=== PATIENT | male | born 1935 | race Caucasian/White ===

== ENCOUNTER 2021-07-12 13:23 | Inpatient (IN) | payer MEDICARE, OTHER, SELFPAY ==
[2021-07-12 13:24] VITALS: BP 168/87; PULSE 82; RESP 16; O2SAT 97; BMI 25.2
--- NOTE | 2021-07-12 13:29 | XR_ITS ---
WS: [id number] XR hip RT 2-3V wo/w pel* [id number] REASON FOR EXAM: pain after fall FINDINGS: There is an intertrochanteric fracture of the proximal right femur. The fracture line extends into th e lesser trochanter. There are least 3 major fracture fragments. There is moderate displacement of fracture fragments. The main body of the lesser trochanter does not appear to be displaced however there does appear to be a fracture fragment displaced from the more superior aspect of the lesser trochanter. There is some deformity of the junction at the superior and inferior pubic ramus which appears to be an old injury however there are no prior examinations for comparison. XR/XR hip RT 2-3V wo/w pel* [id number] IMPRESSION: Complex intertrochanteric fracture of the right hip. Abnormality of the junction of the superior and inferior pubic ramus as above.
--- NOTE | 2021-07-12 13:59 | XR_ITS ---
WS: [id number] XR chest 1V portable [id number] REASON FOR EXAM: HIP PAIN AFTER FALL FINDINGS: Moderate tortuosity of the thoracic aorta without aneurysmal dilatation. Normal heart size. Calcified granulomatous disease in both hemithoraces. Linear opacities in both lower lungs, most likely scarring or small areas of atelectasis. No previous examination for comparison. No acute pulmonary parenchymal or pleural abnormality. Mild/moderate changes of degenerative spondylosis in the mid and lower thoracic spine. Left shoulder arthroplasty. XR/XR chest 1V portable [id number] IMPRESSION: No acute chest abnormality.
--- NOTE | 2021-07-12 14:02 | ECG_ITS ---
[facility] Test Date: 2021-07-12 Pat Name: Darian Candelaria Department: Room: Gender: Male [facility] Attendant: : 1935 Requested By: Angus Colin Order Number: [id number] Seng MD: Yvrose Singh M.D. Measurements Intervals [place] Rate: 80 P: 70 [place]: 231 QRS: -40 QRSD: 103 T: 60 QT: 362 QTc: 419 Interpretive Statements SINUS RHYTHM WITH FIRST DEGREE AV BLOCK WITH OCCASIONAL SUPRAVENTRICULAR PREMATURE COMPLEXES LEFT AXIS DEVIATION [QRS AXIS < -30] INCOMPLETE RIGHT BUNDLE BRANCH BLOCK [90+ ms QRS DURATION, TERMINAL R IN V1/V2, 40+ ms S IN I/aVL/V4/V5/V6] No previous ECG available for comparison Electronically Signed On 07-12-2021 16:52:30 EXTENSION PROFESSOR by Yvrose Singh M.D. [id number]
--- NOTE | 2021-07-12 14:14 | W.ED.FALL ---
HPI - Fall General: Chief Complaint: Fall Stated Complaint: R HIP PAIN, GROUND LEVEL FALL Time Seen by Provider: 07/12/21 13:24 History of Present Illness: 86-year-old male who presents to the emergency room after a ground-level fall at home. He was in the bathroom stumbled and fell landing on his right side was unable to get up. He has severe right-sided hip pain with external rotation obvious shortening of the right leg. He did strike his head as he fell he also hit his right elbow when he fell there is a small abrasion there is a previous injury to the right humerus. He is able to move flex and extend at the elbow without any difficulty. He denies any neck pain denies any chest pain. Questionable loss consciousness when he hit his head. MD complaint: fall Onset (ago): minute(s) Fall from: standing Fall witnessed: no Place fall occurred: home Loss of consciousness: None Length of LOC: second(s) Prolonged down time: no Symptoms prior to fall: none Context: tripped/slipped Location of injury: other (Right hip) Severity: severe Quality: sharp Associated symptoms-after fall: Reports difficulty walking; Denies abdominal pain, chest pain, confusion, headache(s), hematuria, lightheadedness, neck pain, numbness, short of breath, vertigo or weakness Review of Systems Card: Denies: chest pain or lightheadedness GI: Denies: abdominal pain : Denies: hematuria Musc: Denies: neck pain Neuro: Reports: difficulty walking; Denies: headache(s), vertigo or confusion [facility] ED PFSH: Medical History (Updated 07/12/21 @ 14:54 by Angus Bailey DO) BPH (benign prostatic hyperplasia) COVID-19 09/2020 Diabetes GERD (gastroesophageal reflux disease) Gout Hyperlipidemia Hypothyroid Surgical History (Updated 07/12/21 @ 14:30 by Angus Bailey DO) History of arthroplasty of left knee History of total right knee replacement S/p reverse total shoulder arthroplasty Social History (Updated 07/12/21 @ 14:17 by Angus Bailey DO) Smoking and tobacco status: never smoked Alcohol intake: unknown Physical Exam Const: COMMON NORMALS: no acute distress GENERAL APPEARANCE: cooperative and comfortable ORIENTATION/CONSCIOUSNESS: Yes awake, Yes oriented to person, Yes oriented to place and Yes oriented to time HENMT: COMMON NORMALS: normocephalic, atraumatic and hearing grossly normal bilaterally HEAD & SCALP: normocephalic and atraumatic Neck/C-Spine: COMMON NORMALS: no JVD Resp: COMMON NORMALS: normal respiratory effort, No retractions, No use of accessory muscles and clear to auscultation bilaterally AUSCULTATION: clear to auscultation bilaterally Cardio: COMMON NORMALS: no JVD, regular rate, regular rhythm and No murmurs present (Cardio) RATE: regular rate RHYTHM: regular rhythm GI: COMMON NORMALS: Soft to palpation and No hepatosplenomegaly present AUSCULTATION: Yes normoactive bowel sounds PALPATION: Yes Soft to palpation, No Tenderness to palpation present (GI), No Guarding due to palpation present (GI) and Yes No hepatosplenomegaly present Extremity: OTHER: Right leg externally rotated and shortened neurovascularly intact Neuro: SENSORIUM/ORIENTATION: Yes oriented to person, Yes oriented to place and Yes oriented to time Skin: COMMON NORMALS: no rashes or lesions noted GENERAL SKIN EXAM: no rashes or lesions noted Course Vital Signs: Vital signs: Vital Signs Pulse Rate 82 07/12/21 13:24 Respiratory Rate 16 07/12/21 13:24 Blood Pressure 168/87 07/12/21 13:24 Pulse Oximetry 97 07/12/21 13:24 MDM - Fall Medical Decision Making Right intertrochanteric hip fracture. Discussed with hospitalist consult Ortho admit for open reduction internal fixation. Lab Data I reviewed the patient's lab results. Radiology Impressions Hip/Pelvis X-Ray 07/12/21 13:29 IMPRESSION: Complex intertrochanteric fracture of the right hip. Abnormality of the junction of the superior and inferior pubic ramus as above. Discharge Plan Discharge Patient Disposition: Admitted As Inpatient Clinical Impression: Intertrochanteric fracture of right hip, Diabetes, Gout, GERD (gastroesophageal reflux disease), Hyperlipidemia, BPH (benign prostatic hyperplasia), Hypothyroid Prescriptions: No Action latanoprost 0.005 % drops 1 drp ophthalmic (eye) DAILY 0RF metformin 850 mg tablet 850 mg PO DAILY 0RF omeprazole 40 mg capsule,delayed release(DR/EC) 40 mg PO DAILY 0RF Euthyrox 100 mcg tablet 100 mcg PO DAILY 0RF tamsulosin 0.4 mg capsule 0.4 mg PO DAILY 0RF meclizine 25 mg tablet 25 mg PO DAILY PRN (Reason: Dizziness) 0RF simvastatin 20 mg tablet 20 mg PO DAILY 0RF allopurinol 300 mg tablet 300 mg PO DAILY 0RF hydrochlorothiazide 25 mg tablet 25 mg PO DAILY 0RF gabapentin 100 mg capsule 100 mg PO QID 0RF lisinopril-hydrochlorothiazide 10-12.5 mg tablet 1 tab PO DAILY 0RF ketoconazole 2 % cream 1 applic TOPICAL DAILY 0RF oxybutynin chloride 5 mg tablet 5 mg PO DAILY 0RF finasteride 5 mg tablet 5 mg PO DAILY 0RF Coding Level of Care Code ED Occupational Therapy Department Chair for Chg Fwd Exam Detailed
[2021-07-12] MEDS: fentaNYL 50 mcg/mL INJ 2mL IVP (14:41)
[2021-07-12 15:14] LABS: Basophils # 0.1 10^3/uL (0.0-0.1); Basophils % 0.5 %; Eosinophils # 0.3 10^3/uL (0.0-0.8); Eosinophils % 2.4 %; Hematocrit 35.8 % (42.0-52.0); Hemoglobin 11.8 g/dL (11.7-16.6); Lymphocytes # 1.7 10^3/uL (0.8-4.8); Lymphocytes % 15.9 %; Mean Corpuscular Hemoglobin 32.2 pg (28.0-34.0); Mean Corpuscular Volume 97.5 fl (80-94); Mean Platelet Volume 9.3 fL (7.4-10.4); Monocytes # 0.6 10^3/uL (0.2-0.9); Monocytes % 6.1 %; Neutrophils # 7.72 10^3/uL (1.8-7.7); Neutrophils % 74.1 %; Nucleated Red Blood Cells % 0 %; Platelet Count 193 10^3/cmm (130-400); Red Blood Count 3.67 10^6/uL (4.1-5.3); Red Cell Distribution Width 14.5 % (12.1-15.1); White Blood Count 10.4 10^3/uL (4.0-10.0)
--- NOTE | 2021-07-12 15:42 | PM.HP ---
Providers/Chief Complaint Admitting Physician: Della Gregorio MD Primary Care Provider: Dr. Reyna Pastrana, [place], [place] Chief Complaint: R HIP PAIN, GROUND LEVEL FALL History of Present Illness Darian Candelaria is a 86 year old male with a history of chronic gait and balance issues who presented to the emergency room after a fall today. Him and his cousin Maxwell were driving from [place] to [facility]. Mr. Candelaria has an overactive bladder and prostatic hypertrophy and had to go to the bathroom. He made it to the bathroom at the gas station and took care of his business but afterwords, after he had zipped up and started to turn around, his foot got caught on something and he lost his balance. He went down on his right side and also hit his head. The property coordinator bar was just out of reach. The single small bathroom door was locked. His cousin went to check on him and heard him yelling. The maintenance department manager was able to get the door open. He had severe pain in his right hip. And some skin tears. No report of any loss of consciousness, vision changes or headache. He has chronic dizziness for which he is on meclizine without any recent escalation. Denies any chest pain or palpitations and reports that the fall was accidental and balance/gait related. Work-up in the emergency room revealed a complex intertrochanteric fracture of the right hip. Dr. Corea was consulted and plans for surgical intervention in the morning. Patient is being admitted to the hospitalist service due to comorbid medical conditions as noted. Review of Systems Const: Denies: fever(s) or chills Eyes: Reports: other (Glaucoma, no recent symptoms) ENMT: Denies: throat pain or nasal congestion Card: Denies: chest pain, palpitations or edema Resp: Denies: dyspnea, productive cough or non-productive cough GI: Reports: other (No change in stooling); Denies: abdominal pain or vomiting : Reports: urinary frequency and urinary urgency; Denies: flank pain Musc: Reports: extremity pain (Right hip) Skin/Breast: Reports: sores (Skin tear right elbow) and changes in skin color (On abdomen, upper legs and arms since he had Covid last year) Neuro: Reports: numbness in extremities (Peripheral neuropathy from diabetes), difficulty walking (Chronic gait instability), dizziness and other (Balance issues); Denies: headache(s) Edison/Lymph: Denies: easy bruising or easy bleeding Medications/Allergies Home Medications Medication Instructions Recorded Confirmed Last Taken Type allopurinol 300 mg tablet 300 mg PO DAILY 07/12/21 07/12/21 07/12/21 History finasteride 5 mg tablet 5 mg PO DAILY 07/12/21 07/12/21 07/12/21 History gabapentin 100 mg capsule 200 mg PO BID 07/12/21 07/12/21 07/12/21 History hydrochlorothiazide 25 mg tablet 25 mg PO DAILY 07/12/21 07/12/21 07/12/21 History ketoconazole 2 % topical cream 1 applic TOPICAL DAILY 07/12/21 07/12/21 Unknown History latanoprost 0.005 % eye drops 1 drp OPHTHALMIC (EYE) DAILY 07/12/21 07/12/21 Unknown History levothyroxine 100 mcg tablet 100 mcg PO DAILY 07/12/21 07/12/21 07/12/21 History (Euthyrox) lisinopril 10 1 tab PO DAILY 07/12/21 07/12/21 07/12/21 History mg-hydrochlorothiazide 12.5 mg tablet meclizine 25 mg tablet 25 mg PO DAILY PRN 07/12/21 07/12/21 Unknown History metformin 850 mg tablet 850 mg PO DAILY 07/12/21 07/12/21 07/12/21 History omeprazole 40 mg capsule,delayed 40 mg PO DAILY 07/12/21 07/12/21 07/12/21 History release oxybutynin chloride 5 mg tablet 5 mg PO DAILY 07/12/21 07/12/21 07/12/21 History simvastatin 20 mg tablet 20 mg PO DAILY 07/12/21 07/12/21 07/11/21 History tamsulosin 0.4 mg capsule 0.4 mg PO DAILY 07/12/21 07/12/21 07/12/21 History Allergies Allergy/AdvReac Type Severity Reaction Status Date / Time No Known Allergies Allergy Unverified 07/12/21 14:48 PFSH Acute PFSH: Medical History (Updated 07/12/21 @ 17:34 by Della Gregorio MD) BPH (benign prostatic hyperplasia) Chronic kidney disease, stage 3a COVID-19 (~09/2020) COVID-19 vaccine administered Pfizer x2 doses Diabetes mellitus, type II GERD (gastroesophageal reflux disease) Glaucoma Hyperlipidemia Hypertension 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 Hypothyroid Kidney stones Overactive bladder Surgical History (Updated 07/12/21 @ 17:02 by Della Gregorio MD) History of arthroplasty of left knee History of surgery on upper extremity Right upper extremity secondary to extensive fractures from fall, with subsequent revision History of total right knee replacement With subsequent revision due to fall with injury S/p reverse total shoulder arthroplasty Family History (Updated 07/12/21 @ 17:03 by Della Gregorio MD) Denies family history of CAD (coronary artery disease) Chronic kidney disease (CKD) Anesthesia complication Bleeding disorder Stroke Social History (Updated 07/12/21 @ 17:04 by Della Gregorio MD) Smoking and tobacco status: former smoker Alcohol intake: current Alcohol intake frequency: few times a month Substance/Drug Use: never Additional social history: Quit smoking more than 60 years ago Vitals/I&O/Wt Last Vital Signs Pulse 82 07/12/21 13:24 Resp 16 07/12/21 13:24 BP 168/87 07/12/21 13:24 Pulse Ox 97 07/12/21 13:24 Weight last 48 hrs Weight 79.832 kg Physical Exam Narrative: EXAM NARRATIVE: Constitutional: Awake and alert, very talkative, obvious discomfort with any movement HEENT: Normocephalic, atraumatic, extraocular movements are intact, dry membranes Neck: Supple Respiratory: Clear to auscultation bilaterally Cardiovascular: Regular rate and rhythm, no murmurs Abdomen: Soft, nontender, positive bowel sounds Extremities: Right lower extremity is externally rotated and shortened, pain with any movement although is able to move toes. Trace edema bilaterally. No calf tenderness. Skin: Dry, areas of hypopigmentation alternating with areas of hyperpigmentation most notable on the abdomen and extremities, skin tear to the right elbow approximately nickel sized in diameter, bruising to the left elbow similar size, some scratches to the left forearm with dried blood, minor Neuro: Speech clear, face symmetric, handgrip equal, toes downgoing, able to move all extremities Psych: Normal affect Data : 07/12/21 15:00 07/12/21 15:00 Other Labs: Radiology Impressions Hip/Pelvis X-Ray 07/12/21 13:29 There is an intertrochanteric fracture of the proximal right femur. The fracture line extends into the lesser trochanter. There are least 3 major fracture fragments. There is moderate displacement of fracture fragments. The main body of the lesser trochanter does not appear to be displaced however there does appear to be a fracture fragment displaced from the more superior aspect of the lesser trochanter. There is some deformity of the junction at the superior and inferior pubic ramus which appears to be an old injury however there are no prior examinations for comparison. IMPRESSION: Complex intertrochanteric fracture of the right hip. Abnormality of the junction of the superior and inferior pubic ramus as above. Chest X-Ray 07/12/21 13:59 IMPRESSION: No acute chest abnormality. A&P Assessment and plan (1) Fall: Same level, in a gas station bathroom Status: Acute Qualifiers: Encounter type: initial encounter Qualified Code(s): W19.XXXA - Unspecified fall, initial encounter (2) Intertrochanteric fracture of right hip: Consult to Dr. Sosa, no surgical intervention planned for tomorrow Chronic gait instability and peripheral neuropathy along with chronic dizziness we will continue attribute to challenges during rehabilitation/recovery and should be kept in mind Status: Acute Qualifiers: Encounter type: initial encounter Fracture type: closed Fracture alignment: nondisplaced Qualified Code(s): S72.144A - Nondisplaced intertrochanteric fracture of right femur, initial encounter for closed fracture (3) Diabetes mellitus, type II: Chronically on Metformin, currently held A1c last year was 7.2 Sliding scale insulin Continue home gabapentin Status: Acute Qualifiers: Diabetes mellitus termite treater insulin use: without termite treater use Diabetes mellitus complication status: with neurologic complications Diabetes mellitus complication detail: with polyneuropathy Qualified Code(s): E11.42 - Type 2 diabetes mellitus with diabetic polyneuropathy (4) Hypertension: Chronically on lisinopril/hydrochlorothiazide and additional hydrochlorothiazide, both presently held Monitor blood pressures for need to resume Status: Acute Qualifiers: Hypertension type: primary hypertension Qualified Code(s): I10 - Essential (primary) hypertension (5) Chronic kidney disease, stage 3a: Renal function has been stable per patient Electrolytes pending Status: Acute (6) Dizziness: On chronic meclizine, and has undergone physical therapy for this, no cause identified, symptoms for several years We will continue meclizine therapy as needed Status: Chronic (7) Gait instability: Has been in physical therapy for this, from description multifactorial related to neuropathy, dizziness Status: Chronic (8) BPH (benign prostatic hyperplasia): On chronic finasteride and flomax Continue both Status: Chronic Qualifiers: Lower urinary tract symptom presence: symptoms present Lower urinary tract symptom detail: urinary frequency Qualified Code(s): N40.1 - Benign prostatic hyperplasia with lower urinary tract symptoms; R35.0 - Frequency of micturition (9) Overactive bladder: On chronic oxybutynin Hold currently Status: Acute Plan Other diagnoses: Hyperlipidemia, continue statin Hypothyroidism, continue levothyroxine Glaucoma, continue lantanoprost Hyperuricemia, continue allopurinol History of kidney stones Inpatient admission Check baseline troponin and EKG, BNP SCDs for DVT prophylaxis currently secondary to planned surgical intervention tomorrow Low volume IV fluids once n.p.o. tonight Pain control -received fentanyl in the emergency room with limited response, morphine has been ordered, patient's cousin reports that he had hallucinations after oxycodone in the past Scheduled and as needed laxatives given narcotics Chronically on PPI which has been continued Case management to assist with disposition planning. Patient does not live locally. Him and his cousin were on their way to [facility] where he lives. We have reviewed that he will likely need rehabilitation, particularly with chronic gait instability, neuropathy and dizziness. Both Mr. Candelaria and his cousin are [place] back to [place]. We have reviewed that it may be difficult to transport by car so quickly after surgery. We talked about potential arrangements for rehabilitation locally as well as in [place], along with the current challenges of finding placement anywhere in the country. Patient does have history of knee surgery and experience with rehabilitation from that. Explained that we will need to see how he does postoperatively to determine best course of action under the circumstances. Full code Patient has designated his cousin Maxwell is somebody with whom we can speak and who can provide consent should it be needed. Attestations Medical Necessity Statement*: Anticipated stay greater than two midnights in patient with hip fracture which will require surgical intervention. Coding Level of Care Code Acute Agricultural Specialist for Estela Mahan Diagnoses Intertrochanteric fracture of right hip S72.144A Encounter type: initial encounter Fracture type: closed Fracture alignment: nondisplaced BPH (benign prostatic hyperplasia) N40.1; R35.0 Lower urinary tract symptom presence: symptoms present Lower urinary tract symptom detail: urinary frequency Diabetes mellitus, type II E11.42 Diabetes mellitus termite treater insulin use: without termite treater use Diabetes mellitus complication status: with neurologic complications Diabetes mellitus complication detail: with polyneuropathy Hypertension I10 Hypertension type: primary hypertension Chronic kidney disease, stage 3a N18.31 Overactive bladder N32.81 Dizziness R42 Gait instability R26.81 Fall W19.XXXA Encounter type: initial encounter
[2021-07-12 15:48] LABS: INR 0.95 (0.8-1.2)
[2021-07-12 15:49] LABS: Partial Thromboplastin Time 34.7 SECONDS (23.9-36.7)
[2021-07-12 15:51] LABS: Alanine Aminotransferase 13 U/L (0-41); Albumin Level 4.1 g/dL (3.5-5.2); Alkaline Phosphatase 103 IU/L (40-130); Blood Urea Nitrogen 22 mg/dL (8-23); Calcium 8.7 mg/dL (8.5-10.5); Carbon Dioxide 24 mmol/L (22-29); Chloride 104 mmol/L (98-107); Globulin 2.3 g/dL (1.3-4.6); Glucose 101 mg/dL (65-115); Osmolality Calculated 289 mOsm/kg (285-295); Sodium 138 mmol/L (136-145); Total Bilirubin 0.3 mg/dL (0.15-1.2); Total Protein 6.4 g/dL (6.6-8.7)
[2021-07-12 15:54] LABS: Anion Gap 13.6 (5-19); Aspartate Amino Transferase 22 U/L (0-40); Potassium 3.6 mmol/L (3.5-5.1)
--- NOTE | 2021-07-12 16:33 | P.CONIM_ITS ---
Providers/Reason For Consult Consulting Physician/Specialty*: Cem Sosa MD; orthopedic surgery Reason for Consult*: Right intratrochanteric hip fracture History of Present Illness History of Present Illness Darian Candelaria is a 86 year old male traveling through town on his way to [facility]. He has an overactive bladder and apparently stopped at the [facility] to use the bathroom. He describes slipping and falling with resulting pain in his right hip and inability to bear weight. Radiographs here revealed a right intratrochanteric hip fracture. He has a previous history of a comminuted right humerus fracture treated in 2018 after a slip on ice but states he has done very well with that. He does have problems with unsteady gait but uses no ambulatory aids. Medications/Allergies Home Medications Medication Instructions Recorded Confirmed Last Taken Type allopurinol 300 mg tablet 300 mg PO DAILY 07/12/21 07/12/21 07/12/21 History finasteride 5 mg tablet 5 mg PO DAILY 07/12/21 07/12/21 07/12/21 History gabapentin 100 mg capsule 100 mg PO QID 07/12/21 07/12/21 07/12/21 History hydrochlorothiazide 25 mg tablet 25 mg PO DAILY 07/12/21 07/12/21 07/12/21 History ketoconazole 2 % topical cream 1 applic TOPICAL DAILY 07/12/21 07/12/21 Unknown History latanoprost 0.005 % eye drops 1 drp OPHTHALMIC (EYE) DAILY 07/12/21 07/12/21 Unknown History levothyroxine 100 mcg tablet 100 mcg PO DAILY 07/12/21 07/12/21 07/12/21 History (Euthyrox) lisinopril 10 1 tab PO DAILY 07/12/21 07/12/21 07/12/21 History mg-hydrochlorothiazide 12.5 mg tablet meclizine 25 mg tablet 25 mg PO DAILY PRN 07/12/21 07/12/21 Unknown History metformin 850 mg tablet 850 mg PO DAILY 07/12/21 07/12/21 07/12/21 History omeprazole 40 mg capsule,delayed 40 mg PO DAILY 07/12/21 07/12/21 07/12/21 History release oxybutynin chloride 5 mg tablet 5 mg PO DAILY 07/12/21 07/12/21 07/12/21 History simvastatin 20 mg tablet 20 mg PO DAILY 07/12/21 07/12/21 07/11/21 History tamsulosin 0.4 mg capsule 0.4 mg PO DAILY 07/12/21 07/12/21 07/12/21 History Allergies Allergy/AdvReac Type Severity Reaction Status Date / Time No Known Allergies Allergy Unverified 07/12/21 14:48 PFSH Acute PFSH: Medical History (Updated 07/12/21 @ 15:48 by Della Gregorio MD) BPH (benign prostatic hyperplasia) COVID-19 (~09/2020) Diabetes GERD (gastroesophageal reflux disease) Gout Hyperlipidemia Hypothyroid Surgical History History of arthroplasty of left knee History of total right knee replacement S/p reverse total shoulder arthroplasty Family History (Updated 07/12/21 @ 15:46 by Della Gregorio MD) Denies family history of Anesthesia complication Social History (Updated 07/12/21 @ 15:45 by Della Gregorio MD) Smoking and tobacco status: never smoked Vitals/I&O/Wt Last Vital Signs Pulse 82 07/12/21 13:24 Resp 16 07/12/21 13:24 BP 168/87 07/12/21 13:24 Pulse Ox 97 07/12/21 13:24 Weight last 48 hrs Weight 176 lb Physical Exam Narrative: EXAM NARRATIVE: Mr. Hyatt is a supine in his stretcher. He is alert and oriented to person place and time. He is a very good historian and answers all questions appropriately. He has clear shortening and external rotation of his right leg. There is exquisite pain with motion of the right hip. He flexes extend his right toes and ankle without any motor deficits. His sensation is intact to light touch. Data : 07/12/21 15:00 07/12/21 15:00 Other data: Radiographs of the right hip are reviewed revealing a nondisplaced slightly comminuted right intratrochanteric hip fracture. A&P Assessment and plan (1) Intertrochanteric fracture of right hip: Status: Acute Qualifiers: Encounter type: initial encounter Fracture alignment: nondisplaced Fracture type: closed Qualified Code(s): S72.144A - Nondisplaced intertrochanteric fracture of right femur, initial encounter for closed fracture Plan I discussed options with the patient.. I told the patient we could treat this nonoperatively but certainly they would be at risk for medical problems without surgery. Theywould have problems with pain that would require narcotics for pain control. 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 I discussed surgical intervention with the patient. I told them with open reduction internal fixation they should be able to be mobilized and resume ambulatory status. We can eliminate the problems associated with prolonged bed rest and would have better control of pain. Certainly there would be inherent risk with surgery. These would would include the risk of cardiac complications, stroke, infection, and even . I discussed risk of any orthopedic implant including nonunion, malunion, a component failure. I discussed the possible need for component removal. I discussed risk of deep venous thromboses and pulmonary emboli that are present with any treatment and the importance of DVT prophylaxis. The patient expressed good understanding of alternative treatments, seem to comprehend, and agrees to surgical intervention. He states he would like to travel back to [facility] soon as possible. I told him that may be difficult with a hip fracture even with surgical stabilization for few weeks. We will see how he does. Coding Level of Care Code Acute Business Technology Teacher for Estela Mahan Diagnoses Intertrochanteric fracture of right hip S72.144A Encounter type: initial encounter Fracture alignment: nondisplaced Fracture type: closed
[2021-07-12 17:00] VITALS: RESP 18
[2021-07-12] MEDS: morphine 4 mg/mL SDV 1 mL IVP ×2 (17:00→22:50)
[2021-07-12 21:25] LABS: Glucose Point of Care 114 mg/dL (70-110)
[2021-07-12] MEDS: gabapentin 100 mg Capsule PO (22:49)
[2021-07-12 22:50] VITALS: RESP 18; O2SAT 97
[2021-07-12] MEDS: oxybutynin 5 mg Tablet PO (22:50)
[2021-07-12] MEDS: docusate sodium 100 mg Capsule PO (22:50)
[2021-07-13] VITALS (20 sets, daily range): BP systolic 87–153; BP diastolic 54–82; PULSE 86–126; RESP 13–22; TEMP 36.4–38; O2SAT 86–99
--- NOTE | 2021-07-13 | SCC_ITS ---
Procedure done: Open reduction internal fixation right hip with intramedullary device 60.8 seconds of fluoroscopic guidance, for a cumulative dose of 8.20 mGy, was provided to Dr. Sosa by the radiology department. C-arm images of the RIGHT hip/femur were saved for the patient's permanent record. [facility]
--- NOTE | 2021-07-13 | XR_ITS ---
WS: [id number] XR femur RT min 2V* [id number] REASON FOR EXAM: r hip pain, ground level fall. FINDINGS: Intramedullary salma and large nail fixation of intertrochanteric fracture. Surgical appliances and fra cture fragments appear in proper position and alignment. XR/XR femur RT min 2V* [id number] IMPRESSION: Internal fixation of right hip fracture without abnormality.
[2021-07-13 02:29] LABS: Add Urine Microscopic? NO; Charge for UA Resulting for Rev
[2021-07-13 02:33] LABS: Bilirubin Urine Neg (Negative); Blood Urine Neg (Negative); Glucose Urine UA Norm (Normal); Ketones Urine Negative (Negative); Leukocyte Esterase Urine Negative (Negative); Nitrate Urine Negative (Negative); Protein Urine Neg (Negative); Specific Gravity, Urine 1.005 (1.005-1.030); Urine Appearance Clear (CLEAR); Urine Color Yellow (Yellow); Urobilinogen Urine Norm (Negative); pH Urine 5 (5-7)
--- NOTE | 2021-07-13 04:27 | PC.NURSE ---
Patient declines PRN pain medication at this time.
[2021-07-13] MEDS: morphine 4 mg/mL SDV 1 mL IVP ×2 (05:42→10:20)
[2021-07-13 06:03] LABS: Basophils # 0.1 10^3/uL (0.0-0.1); Basophils % 0.5 %; Eosinophils # 0.2 10^3/uL (0.0-0.8); Eosinophils % 1.7 %; Hematocrit 32.7 % (42.0-52.0); Hemoglobin 10.7 g/dL (11.7-16.6); Lymphocytes # 1.8 10^3/uL (0.8-4.8); Lymphocytes % 18.2 %; Mean Corpuscular HGB Conc 32.7 g/dL (30.0-36.0); Mean Corpuscular Hemoglobin 32.5 pg (28.0-34.0); Mean Corpuscular Volume 99.4 fl (80-94); Mean Platelet Volume 9.9 fL (7.4-10.4); Monocytes # 0.9 10^3/uL (0.2-0.9); Neutrophils # 6.85 10^3/uL (1.8-7.7); Neutrophils % 69.9 %; Nucleated Red Blood Cells % 0 %; Platelet Count 187 10^3/cmm (130-400); Red Blood Count 3.29 10^6/uL (4.1-5.3); Red Cell Distribution Width 14.3 % (12.1-15.1); White Blood Count 9.8 10^3/uL (4.0-10.0)
[2021-07-13 06:15] LABS: INR 1.04 (0.8-1.2)
[2021-07-13 06:33] LABS: Magnesium 1.3 mg/dL (1.7-2.3); NT Pro B Type Natriuretic Pept 662 pg/mL (0-450)
[2021-07-13 06:39] LABS: Glucose Point of Care 114 mg/dL (70-110)
--- NOTE | 2021-07-13 09:45 | PC.CHAP ---
Pastoral Care Encounter/Spiritual Assessment Type of Contact [] Declined laborer hoisting visit [] Patient/Family/Request visit [] Outpatient visit [] Follow-up visit [] Physician referral [] Code/Alert [x] Routine visit [] Staff referral [] Actively dying [] Patient sleeping [] Family support [] [] Out of room [] Palliative care [] [] Receiving care in room [] Pre-surgical visit [] Trauma [] Long length of stay [] ICU visit [] Other: Relational/Emotional Strength [x] Patient feels connected with others/family/visitors/staff [] Distress [] Loneliness/isolation [] Abandonment Spirituality of Patient [x] Person of [place] [x] Attends Presybeterian of their [place] [x] Believes in Prayer [x] Reads Bible or Muslim materials [] There are Spiritual issues to be addressed Sales Representative Electric Service Interventions [x] Prayer x] Active listening [x] Non-anxious presence [x] Spiritual/emotional support [] Crisis/trauma care [] Spiritual counseling [] Bereavement support [] Provided bereavement packet [] Provided Bible/devotional materials [] Provided toy/stuffed animal, coloring book to patient or family member [] Provided Communion [] Anointing/[place] [] Salvation [x] Completed spiritual assessment [] Other: Impact on Illness or Injury [] Angry [] Fearful [] Anxious [] Often cries [] Exhaustion [] Unable to work [] Unable to attend adventist [] Unable to walk/stand [] Unable to read [] Unable to drive [] Unable to eat/drink [] Unable to sleep [] Unable to be with family [] Patient intubated [] Other: Summary Time spent with patient 15 min
[2021-07-13] MEDS: latanoprost 0.005% Op Soln 2.5 mL Btl 1 DROP OPHTHALMIC (10:00)
[2021-07-13] MEDS: finasteride 5 mg Tablet PO (10:13)
[2021-07-13] MEDS: atorvastatin 40 mg Tablet 20 MG PO (10:13)
[2021-07-13] MEDS: levothyroxine 100 mcg Tablet PO (10:14)
[2021-07-13] MEDS: docusate sodium 100 mg Capsule PO ×2 (10:14→17:32)
[2021-07-13] MEDS: tamsulosin 0.4 mg Capsule PO (10:14)
[2021-07-13] MEDS: gabapentin 100 mg Capsule PO ×3 (10:14→20:56)
[2021-07-13] MEDS: allopurinol 300 mg Tablet PO (10:15)
[2021-07-13] MEDS: pantoprazole DR 40 mg Tablet PO (10:16)
[2021-07-13] MEDS: oxybutynin 5 mg Tablet PO ×2 (10:18→20:56)
[2021-07-13] MEDS: ketoconazole Cream 15 gm 1 APPLIC TOPICAL (10:19)
--- NOTE | 2021-07-13 11:13 | PC.NURSE ---
patient taken to OR via bed
--- NOTE | 2021-07-13 11:21 | P.PN_ITS ---
Subjective Subjective: Interval history: Patient is awaiting surgical intervention today No overnight events No active pain Pain at the time of my evaluation 07/21 Saturating well on room air Vitals/I&O/Wt Last Vital Signs Temp 98.7 F 07/13/21 07:56 Pulse 94 07/13/21 07:56 Resp 18 07/13/21 10:20 BP 136/64 07/13/21 07:56 Pulse Ox 94 07/13/21 07:56 07/12/21 07/13/21 07/13/21 22:59 06:59 14:59 Output Total 440 / 440 100 / 100 Balance -440 / -440 -100 / -100 Weight last 48 hrs Weight 79.832 kg Physical Exam Narrative: EXAM NARRATIVE: Patient looks dry Dehydrated S1, S2 Abdomen soft Clinical signs of dehydration No signs of vascular compromise of lower extremities Nonfocal neuro exam EOMI, PERRLA Data : 07/13/21 04:27 07/12/21 15:00 A&P Assessment and plan (1) Fall: Status: Acute Qualifiers: Encounter type: initial encounter Qualified Code(s): W19.XXXA - Unspecified fall, initial encounter (2) Peripheral neuropathy: Status: Acute Qualifiers: Peripheral neuropathy type: polyneuropathy associated with underlying disease Qualified Code(s): G63 - Polyneuropathy in diseases classified el sewhere (3) Gait instability: Status: Chronic (4) Chronic kidney disease, stage 3a: Status: Acute (5) Overactive bladder: Status: Acute (6) Hypertension: Status: Acute Qualifiers: Hypertension type: primary hypertension Qualified Code(s): I10 - Essential (primary) hypertension (7) Diabetes mellitus, type II: Status: Acute Qualifiers: Diabetes mellitus local intermodal truck driver insulin use: without local intermodal truck driver use Diabetes mellitus complication status: with neurologic complications Diabetes mellitus complication detail: with polyneuropathy Qualified Code(s): E11.42 - Type 2 diabetes mellitus with diabetic polyneuropathy (8) Intertrochanteric fracture of right hip: Status: Acute Qualifiers: Encounter type: initial encounter Fracture alignment: nondisplaced Fracture type: closed Qualified Code(s): S72.144A - Nondisplaced intertrochanteric fracture of right femur, initial encounter for closed fracture (9) Hypothyroid: Status: Chronic Qualifiers: Hypothyroidism type: acquired Qualified Code(s): E03.9 - Hypothyroidism, unspecified (10) BPH (benign prostatic hyperplasia): Status: Chronic Qualifiers: Lower urinary tract symptom detail: urinary frequency Lower urinary tract symptom presence: symptoms present Qualified Code(s): N40.1 - Benign prostatic hyperplasia with lower urinary tract symptoms; R35.0 - Frequency of micturition Plan Hip fracture Awaiting surgical intervention Continue n.p.o., SCDs Pain under control Added bowel regimen Patient is motivated to return to [place] We will request PT after his surgical intervention In good spirits today Patient is stating that his CODE STATUS is according to what ever his daughter decides Attestations Medical Necessity Statement*: Intervention today Time Spent in Patient Care: 15 minutes Coding Level of Care Code Acute Sr. Payroll Manager for Chg Fwd Diagnoses Fall W19.XXXA Encounter type: initial encounter Peripheral neuropathy G63 Peripheral neuropathy type: polyneuropathy associated with underlying disease Gait instability R26.81 Chronic kidney disease, stage 3a N18.31 Overactive bladder N32.81 Hypertension I10 Hypertension type: primary hypertension Diabetes mellitus, type II E11.42 Diabetes mellitus detention insulin use: without local intermodal truck driver use Diabetes mellitus complication status: with neurologic complications Diabetes mellitus complication detail: with polyneuropathy Intertrochanteric fracture of right hip S72.144A Encounter type: initial encounter Fracture alignment: nondisplaced Fracture type: closed Hypothyroid E03.9 Hypothyroidism type: acquired BPH (benign prostatic hyperplasia) N40.1; R35.0 Lower urinary tract symptom detail: urinary frequency Lower urinary tract symptom presence: symptoms present
[2021-07-13 11:39] LABS: Glucose Point of Care 98 mg/dL (70-110)
--- NOTE | 2021-07-13 12:07 | ANES.PREANE2 ---
Pre-Anesthetic Assessment Height/Weight: Height 1.78 m Weight 79.832 kg Temp Pulse Resp BP Pulse Ox 99.4 F 89 17 141/78 99 07/13/21 11:26 07/13/21 11:26 07/13/21 11:26 07/13/21 11:26 07/13/21 11:26 Preop Diagnosis: Right intratrochanteric hip fracture Operation Date: 07/13/21 12:00 Proposed Procedures p Trochanteric Femoral Nail(Right) - Cem Sosa MD Familial anesthetic complications: none Last intake: Intake Last Liquid Date 07/12/21 Last Liquid Time 12:00 Last Solid Date 07/12/21 Last Solid Time 12:00 Social No alcohol and No tobacco Airway Submandibular: within normal limits Cervical ROM: within normal limits Mallampati: Class II Dentition: false Pulmonary None reported CV/HEM Hypertension Chronic Renal Insufficiency Hepatic None reported GI Gastroesophageal Reflux Disease (controlled) Metabolic Diabetes Mellitus (II) and Thyroid Disease (hypo) Musc/skel Lower Back Pain and Osteoarthritis/DJD Neuropsych None reported Anesthetic Plan ASA status: 3 Anesthesia: General Medications/Allergies Home Medications Medication Instructions Recorded Confirmed Last Taken Type allopurinol 300 mg tablet 300 mg PO DAILY 07/12/21 07/12/21 07/12/21 History finasteride 5 mg tablet 5 mg PO DAILY 07/12/21 07/12/21 07/12/21 History gabapentin 100 mg capsule 200 mg PO BID 07/12/21 07/12/21 07/12/21 History hydrochlorothiazide 25 mg tablet 25 mg PO DAILY 07/12/21 07/12/21 07/12/21 History ketoconazole 2 % topical cream 1 applic TOPICAL DAILY 07/12/21 07/12/21 Unknown History latanoprost 0.005 % eye drops 1 drp OPHTHALMIC (EYE) DAILY 07/12/21 07/12/21 Unknown History levothyroxine 100 mcg tablet 100 mcg PO DAILY 07/12/21 07/12/21 07/12/21 History (Euthyrox) lisinopril 10 1 tab PO DAILY 07/12/21 07/12/21 07/12/21 History mg-hydrochlorothiazide 12.5 mg tablet meclizine 25 mg tablet 25 mg PO DAILY PRN 07/12/21 07/12/21 Unknown History metformin 850 mg tablet 850 mg PO DAILY 07/12/21 07/12/21 07/12/21 History omeprazole 40 mg capsule,delayed 40 mg PO DAILY 07/12/21 07/12/21 07/12/21 History release oxybutynin chloride 5 mg tablet 5 mg PO DAILY 07/12/21 07/12/21 07/12/21 History simvastatin 20 mg tablet 20 mg PO DAILY 07/12/21 07/12/21 07/11/21 History tamsulosin 0.4 mg capsule 0.4 mg PO DAILY 07/12/21 07/12/21 07/12/21 History Allergies Allergy/AdvReac Type Severity Reaction Status Date / Time Penicillins Allergy ALGY-Rash Verified 07/13/21 10:54 Sulfa (Sulfonamide Allergy ALGY-Rash Verified 07/13/21 10:54 Antibiotics) Current Medications Generic Name Dose Route Start Last Admin Trade Name Freq PRN Reason Stop Dose Admin Allopurinol 300 mg 07/13/21 09:00 07/13/21 10:15 Allopurinol 300 Mg Tablet PO 300 mg DAILY ROSALINDA Administration Atorvastatin Calcium 20 mg 07/13/21 09:00 07/13/21 10:13 Atorvastatin 40 Mg Tablet PO 20 mg DAILY ROSALINDA Administration Docusate Sodium 100 mg 07/12/21 22:24 07/13/21 10:14 Docusate Sodium 100 Mg Capsule PO 100 mg BID ROSALINDA Administration Finasteride 5 mg 07/13/21 09:00 07/13/21 10:13 Finasteride 5 Mg Tablet PO 5 mg DAILY ROSALINDA Administration Gabapentin 100 mg 07/12/21 22:24 07/13/21 10:14 Gabapentin 100 Mg Capsule PO 100 mg QID ROSALINDA Administration Insulin Human Lispro 0 unit 07/12/21 22:24 07/12/21 22:35 Insulin Lispro 100 Unit/1 Ml SUBCUT Not Given BEDTIME ROSALINDA Protocol Insulin Human Lispro 0 unit 07/12/21 22:24 07/13/21 08:07 Insulin Lispro 100 Unit/1 Ml SUBCUT Not Given TIDWM REPLACED BY [facility] Protocol Ketoconazole 1 applic 07/13/21 09:00 07/13/21 10:19 Ketoconazole Cream 15 Gm TOPICAL 1 applic DAILY ROSALINDA Administration Levothyroxine Sodium 100 mcg 07/13/21 09:00 07/13/21 10:14 Levothyroxine 100 Mcg Tablet PO 100 mcg DAILY ROSALINDA Administration Morphine Sulfate 4 mg 07/12/21 22:24 07/13/21 10:20 Morphine 4 Mg/Ml Sdv 1 Ml IVP 4 mg Q4H PRN Administration SEVERE PAIN Oxybutynin Chloride 5 mg 07/12/21 23:00 07/12/21 22:50 Oxybutynin 5 Mg Tablet PO 5 mg BEDTIME ROSALINDA Administration Oxybutynin Chloride 5 mg 07/12/21 22:30 07/13/21 10:18 Oxybutynin 5 Mg Tablet PO 5 mg DAILY ROSALINDA Administration Pantoprazole Sodium 40 mg 07/13/21 09:00 07/13/21 10:[address] 40 Mg Tablet PO 40 mg DAILY ROSALINDA Administration Senna 17.2 mg 07/12/21 22:24 07/12/21 22:51 Sennosides 8.6 Mg Tablet PO Not Given BEDTIME ROSALINDA Tamsulosin HCl 0.4 mg 07/13/21 09:00 07/13/21 10:14 Tamsulosin 0.4 Mg Capsule PO 0.4 mg DAILY ROSALINDA Administration [facility] Anesthesia Medical History (Updated 07/12/21 @ 17:34 by Della Gregorio MD) BPH (benign prostatic hyperplasia) Chronic kidney disease, stage 3a COVID-19 (~09/2020) COVID-19 vaccine administered Pfizer x2 doses Diabetes mellitus, type II GERD (gastroesophageal reflux disease) Glaucoma Hyperlipidemia Hypertension 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 Hypothyroid Kidney stones Overactive bladder Surgical History (Updated 07/12/21 @ 17:02 by Della Gregorio MD) History of arthroplasty of left knee History of surgery on upper extremity Right upper extremity secondary to extensive fractures from fall, with subsequent revision History of total right knee replacement With subsequent revision due to fall with injury S/p reverse total shoulder arthroplasty Family History (Updated 07/12/21 @ 17:03 by Della Gregorio MD) Denies family history of CAD (coronary artery disease) Chronic kidney disease (CKD) Anesthesia complication Bleeding disorder Stroke Social History (Updated 07/12/21 @ 17:04 by Della Gregorio MD) Smoking and tobacco status: former smoker Alcohol intake: current Alcohol intake frequency: few times a month Substance/Drug Use: never Additional social history: Quit smoking more than 60 years ago Data Anesthesia : 07/13/21 04:27 07/12/21 15:00 Short CBC 07/12/21 07/13/21 Range/Units 15:00 04:27 WBC 10.4 H 9.8 (4.0-10.0) 10^3/uL Hgb 11.8 10.7 L (11.7-16.6) g/dL Hct 35.8 L 32.7 L (42.0-52.0) % MCV 97.5 H 99.4 H (80-94) fl Plt Count 193 187 (130-400) 10^3/cmm Neut % (Auto) 74.1 69.9 % Neut # (Auto) 7.72 H 6.85 (1.8-7.7) 10^3/uL BMP 07/12/21 15:00 Sodium 138 Potassium 3.6 Chloride 104 Carbon Dioxide 24 BUN 22 Creatinine 1.1 Glucose 101 Calcium 8.7 Cardiac Enzymes 07/13/21 Range/Units 04:27 NT-Pro-B Natriuret Pep 662 H (0-450) pg/mL Liver Function 07/12/21 Range/Units 15:00 Total Bilirubin 0.3 (0.15-1.2) mg/dL AST 22 (0-40) U/L ALT 13 (0-41) U/L Alkaline Phosphatase 103 (40-130) IU/L Albumin 4.1 (3.5-5.2) g/dL Urine 07/13/21 Range/Units 02:25 Urine Color Yellow (Yellow) Urine Appearance Clear (CLEAR) Urine pH 5 (5-7) Ur Specific [place] 1.005 (1.005-1.030) Urine Protein Neg (Negative) Urine Glucose (UA) Norm (Normal) Urine Ketones Negative (Negative) Urine Nitrate Negative (Negative) Urine Bilirubin Neg (Negative) Ur Leukocyte Esterase Negative (Negative) Coags 07/12/21 07/13/21 15:00 04:27 PT 12.90 13.90 INR 0.95 1.04 APTT 34.7 Cardiac Studies: No Data to Display
[2021-07-13] MEDS: fentaNYL 50 mcg/mL INJ 2mL IVP ×3 (12:13→14:39)
--- NOTE | 2021-07-13 14:02 | PM.OP ---
Operative Report Date of procedure: July 13, 2021 Pre-op diagnosis: Preop Diagnosis Right intratrochanteric hip fracture Post-op diagnosis: same Post-op diagnosis: Same Post-op findings: Same Procedure done: Open reduction internal fixation right hip with intramedullary device Pathology: none sent Surgeon: Cem Sosa Anesthesia: General Estimated blood loss (mL): 50 Findings: The patient had the previously the patient had the previously described to part right intertrochanteric hip fracture Condition: stable Disposition: PACU Procedure: The patient was taken to the operating room. They were given 1 g of Ancef. They were positioned on the fracture table with the right lower extremity in gentle traction. A timeout was performed. A 2 cm long incision was made proximal to the greater trochanter scalpel blade. Dissection was carried down to tip the greater trochanter. A guidepin was passed manually from the tip of the trochanter down the shaft. The proximal reamer was utilized to open up the proximal canal. An 11 mm by 306 Moon gamma nail was passed down the canal without difficulty. Under visualization of fluoroscopy a guidepin was driven up into the head and neck at 125? angle. It was measured at 95 mm in length and a lag screw similar length was then placed and locked into place with the proximal locking screw. Intraoperative imaging was obtained verifying satisfactory position of the hardware and reduction of the fracture. Deep tissues were closed with 0 Vicryl, the subcutaneous tissues with 2-0 Vicryl and the skin with a running 4-0 Monocryl. The skin was closed with skin hollie. Sterile dressings were applied. The patient was extubated and taken to recovery room in stable condition.
--- NOTE | 2021-07-13 15:00 | PC.NURSE ---
Patient back from OR.
[2021-07-13] MEDS: sodium chloride 0.9% 1,000 ML 75 ML IV (15:17)
--- NOTE | 2021-07-13 17:20 | PC.PT ---
Patient is supine with cousin present, patient's cousin states patient very confused and unable to participate at this time, and this does appear so, will reattempt evaluation and treatment in the morning.
[2021-07-13 17:41] LABS: Glucose Point of Care 147 mg/dL (70-110)
[2021-07-13] MEDS: insulin lispro 100 unit/1 mL SUBCUT ×2 (18:04→21:12)
--- NOTE | 2021-07-13 20:41 | ANE.PACU2 ---
Inpatient post-anesthesia follow up: Airway intact: Yes Vital signs: Temperature 98.2 F Pulse Rate 109 Respiratory Rate 18 Blood Pressure 148/82 Pulse Oximetry 90 Oxygen Delivery Me thod Nasal Cannula Oxygen Flow Rate 1 Fraction of Inspir ed Oxygen Hydration adequate: Yes Nausea and vomiting: No Pain level: 1 Mental status: Baseline
[2021-07-13] MEDS: sennosides 8.6 mg Tablet 17.2 MG PO (20:56)
[2021-07-13 21:07] LABS: Glucose Point of Care 210 mg/dL (70-110)
[2021-07-14] VITALS (8 sets, daily range): BP systolic 98–121; BP diastolic 61–68; PULSE 89–115; RESP 16–20; TEMP 36.8–37.4; O2SAT 86–96
[2021-07-14] MEDS: sodium chloride 0.9% 1,000 ML 75 ML IV (02:31)
[2021-07-14 06:38] LABS: Basophils % 0.3 %; Eosinophils # 0.2 10^3/uL (0.0-0.8); Eosinophils % 1.8 %; Hematocrit 32.4 % (42.0-52.0); Hemoglobin 10.2 g/dL (11.7-16.6); Lymphocytes # 1.2 10^3/uL (0.8-4.8); Lymphocytes % 9.7 %; Mean Corpuscular HGB Conc 31.5 g/dL (30.0-36.0); Mean Corpuscular Hemoglobin 32.6 pg (28.0-34.0); Mean Corpuscular Volume 103.5 fl (80-94); Mean Platelet Volume 10.3 fL (7.4-10.4); Neutrophils # 9.53 10^3/uL (1.8-7.7); Neutrophils % 79.5 %; Nucleated Red Blood Cells % 0 %; Platelet Count 158 10^3/cmm (130-400); Red Blood Count 3.13 10^6/uL (4.1-5.3); Red Cell Distribution Width 14.6 % (12.1-15.1)
[2021-07-14 06:48] LABS: Glucose Point of Care 122 mg/dL (70-110)
--- NOTE | 2021-07-14 07:34 | XR_ITS ---
WS: [id number] CHEST XRAY TECHNIQUE: Portable chest. CLINICAL INFORMATION: febrile post op COMPARISON: July 12, 2021 FINDINGS: Heart: Normal cardiac silhouette. Aortic calcification. Lungs: Moderate chronic emphysematous changes. 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 Bones: RIGHT TSA. IMPRESSION: 1. No changes compared to July 12, 2021 2. Interstitial infiltrates or fibrosis in the LEFT midlung and LEFT lower lobe unchanged. 3. RIGHT lung is well aerated. Moderate chronic emphysematous changes.
[2021-07-14] MEDS: finasteride 5 mg Tablet PO (08:23)
[2021-07-14] MEDS: levothyroxine 100 mcg Tablet PO (08:23)
[2021-07-14] MEDS: oxybutynin 5 mg Tablet PO ×2 (08:24→21:36)
[2021-07-14] MEDS: docusate sodium 100 mg Capsule PO ×2 (08:24→18:52)
[2021-07-14] MEDS: allopurinol 300 mg Tablet PO (08:24)
[2021-07-14] MEDS: gabapentin 100 mg Capsule PO ×4 (08:24→21:36)
[2021-07-14] MEDS: atorvastatin 40 mg Tablet 20 MG PO (08:24)
[2021-07-14] MEDS: aspirin 325 mg EC Tablet PO (08:24)
[2021-07-14] MEDS: pantoprazole DR 40 mg Tablet PO (08:25)
[2021-07-14] MEDS: tamsulosin 0.4 mg Capsule PO (08:25)
[2021-07-14 08:37] LABS: Anion Gap 15.5 (5-19); Blood Urea Nitrogen 20 mg/dL (8-23); Carbon Dioxide 22 mmol/L (22-29); Chloride 107 mmol/L (98-107); Glucose 116 mg/dL (65-115); Osmolality Calculated 294 mOsm/kg (285-295); Potassium 4.5 mmol/L (3.5-5.1); Sodium 140 mmol/L (136-145)
[2021-07-14] MEDS: HYDROcodone-acetaminophen 5-325 mg Tablet 1 TAB PO (10:45)
[2021-07-14 11:22] LABS: Glucose Point of Care 167 mg/dL (70-110)
--- NOTE | 2021-07-14 12:07 | PM.PN ---
Subjective Subjective: Interval history: He is eager toPatient is needing 3 person assist for ambulation, not ready to be discharged Turned [place], his cousin is in the room who was notified about this plan Vitals/I&O/Wt Last Vital Signs Temp 99.4 F 07/14/21 07:59 Pulse 91 07/14/21 07:59 Resp 17 07/14/21 07:59 BP 108/66 07/14/21 07:59 Pulse Ox 86 L 07/14/21 07:59 07/13/21 07/14/21 07/14/21 22:59 06:59 14:59 Intake Total 942.5 / 1402.5 120 / 120 Output Total 350 / 1800 250 / 2050 Balance -350 / -1340 692.5 / -647.5 120 / 120 Weight last 48 hrs Weight 79.832 kg Physical Exam Narrative: EXAM NARRATIVE: Patient is endorsing pain on ambulation Able to work with PT with 3 person assist Awake and alert S1, S2 Saturating well on room air Abdomen soft Nonfocal neuro exam Urinary Catheter Management: Mcpherson: Cath Placed During This Visit: yes Reason for Continuing Indwelling Catheter: Acute Urinary Retention or Obstruction Urinary Catheter Date of Insertion: 07/13/21 Urinary Catheter Time of Insertion: 12:50 Data : 07/14/21 05:19 07/14/21 08:00 A&P Assessment and plan (1) Fall: Status: Acute Qualifiers: Encounter type: initial encounter Qualified Code(s): W19.XXXA - Unspecified fall, initial encounter (2) Peripheral neuropathy: Status: Acute Qualifiers: Peripheral neuropathy type: polyneuropathy associated with underlying disease Qualified Code(s): G63 - Polyneuropathy in diseases classified elsewhere (3) Gait instability: Status: Chronic (4) Dizziness: Status: Chronic (5) Chronic kidney disease, stage 3a: Status: Acute (6) Diabetes mellitus, type II: Status: Acute Qualifiers: Diabetes mellitus rodent exterminator insulin use: without residential use Diabetes mellitus complication status: with neurologic complications Diabetes mellitus complication detail: with polyneuropathy Qualified Code(s): E11.42 - Type 2 diabetes mellitus with diabetic polyneuropathy (7) Hypertension: Status: Acute Qualifiers: Hypertension type: primary hypertension Qualified Code(s): I10 - Essential (primary) hypertension (8) S/P ORIF (open reduction internal fixation) fracture: Status: Acute Plan Patient noted to be discharged status post ORIF postop day 1 Continue to work with PT today and tomorrow if tomorrow he is able to bear weight without maximal assist we will discharge him then, he definitely needs a walker rehabilitation center manager working with SNF in [place] to get him placed Continue bowel regimen Wean off oxygen to room air Euglycemic Consistent carb diet Full code DVT prophylaxis on board Attestations Medical Necessity Statement*: Discharge tomorrow if he gets accepted Time Spent in Patient Care: 15mins Coding Level of Care Code Acute Benefits Analyst for [facility] Fwd Diagnoses Fall W19.XXXA Encounter type: initial encounter Peripheral neuropathy G63 Peripheral neuropathy type: polyneuropathy associated with underlying disease Gait instability R26.81 Dizziness R42 Chronic kidney disease, stage 3a N18.31 Diabetes mellitus, type II E11.42 Diabetes mellitus rodent exterminator insulin use: without rodent exterminator use Diabetes mellitus complication status: with neurologic complications Diabetes mellitus complication detail: with polyneuropathy Hypertension I10 Hypertension type: primary hypertension S/P ORIF (open reduction internal fixation) fracture Z98.890; Z87.81
[2021-07-14] MEDS: lactulose oral liq 20 gm/30 mL UDC 10 GM PO (14:35)
[2021-07-14] MEDS: sennosides-docusate Tablet 1 TAB PO (14:36)
[2021-07-14] MEDS: insulin lispro 100 unit/1 mL SUBCUT ×3 (14:36→21:36)
[2021-07-14 17:28] LABS: Glucose Point of Care 146 mg/dL (70-110)
[2021-07-14 21:06] LABS: Glucose Point of Care 194 mg/dL (70-110)
[2021-07-14] MEDS: sennosides 8.6 mg Tablet 17.2 MG PO (21:36)
[2021-07-15 04:00] VITALS: BP 116/65; PULSE 109; RESP 19; TEMP 37.2; O2SAT 93
[2021-07-15] MEDS: sodium chlor 0.45% +KCl 20 mEq 20 MEQ/1,000 ML BAG 75 MEQ IV (05:57)
[2021-07-15 06:20] LABS: Glucose Point of Care 129 mg/dL (70-110)
[2021-07-15 06:48] LABS: Anion Gap 13.8 (5-19); Blood Urea Nitrogen 27 mg/dL (8-23); Carbon Dioxide 23 mmol/L (22-29); Chloride 106 mmol/L (98-107); Glucose 118 mg/dL (65-115); Osmolality Calculated 294 mOsm/kg (285-295); Potassium 3.8 mmol/L (3.5-5.1); Sodium 139 mmol/L (136-145)
[2021-07-15 08:00] VITALS: BP 108/65; PULSE 113; RESP 18; TEMP 37.4; O2SAT 91
[2021-07-15] MEDS: finasteride 5 mg Tablet PO (09:06)
[2021-07-15] MEDS: sennosides-docusate Tablet 1 TAB PO (09:06)
[2021-07-15] MEDS: allopurinol 300 mg Tablet PO (09:06)
[2021-07-15] MEDS: latanoprost 0.005% Op Soln 2.5 mL Btl 1 DROP OPHTHALMIC (09:07)
[2021-07-15] MEDS: levothyroxine 100 mcg Tablet PO (09:07)
[2021-07-15] MEDS: pantoprazole DR 40 mg Tablet PO (09:07)
[2021-07-15] MEDS: aspirin 325 mg EC Tablet PO (09:07)
[2021-07-15] MEDS: atorvastatin 40 mg Tablet 20 MG PO (09:07)
[2021-07-15] MEDS: gabapentin 100 mg Capsule PO ×4 (09:07→20:50)
[2021-07-15] MEDS: oxybutynin 5 mg Tablet PO ×2 (09:07→20:50)
[2021-07-15] MEDS: docusate sodium 100 mg Capsule PO ×2 (09:07→18:00)
[2021-07-15] MEDS: HYDROcodone-acetaminophen 5-325 mg Tablet 1 TAB PO (09:08)
[2021-07-15] MEDS: ketoconazole Cream 15 gm 1 APPLIC TOPICAL (09:08)
[2021-07-15] MEDS: tamsulosin 0.4 mg Capsule PO (09:42)
--- NOTE | 2021-07-15 09:51 | P.PN_ITS ---
Subjective Subjective: Interval history: pain controlled Vitals/I&O/Wt Last Vital Signs Temp 99.3 F 07/15/21 08:00 Pulse 113 H 07/15/21 08:00 Resp 18 07/15/21 08:00 BP 108/65 07/15/21 08:00 Pulse Ox 91 07/15/21 08:00 07/14/21 07/15/21 07/15/21 22:59 06:59 14:59 Intake Total 120 / 1480 210 / 1690 200 / 200 Output Total 600 / 600 Balance 120 / 1480 -390 / 1090 200 / 200 Physical Exam Narrative: EXAM NARRATIVE: sitting in chair moving leg Urinary Catheter Management: Mendiola: Cath Placed During This Visit: yes Reason for Continuing Indwelling Catheter: Acute Urinary Retention or Obstruction Urinary Catheter Date of Insertion: 07/13/21 Urinary Catheter Time of Insertion: 12:50 Data : 07/14/21 05:19 07/15/21 05:47 A&P Assessment and plan (1) S/P ORIF (open reduction internal fixation) fracture: POD#2 Right IM nail d/c mendiola Status: Acute Attestations Medical Necessity Statement*: per primary Coding Level of Care Code Acute Equipment Application Specialist for [facility] Fwd Diagnoses S/P ORIF (open reduction internal fixation) fracture Z98.890; Z87.81
--- NOTE | 2021-07-15 11:15 | P.PN_ITS ---
Subjective Subjective: Interval history: Patient has not regained his strength of right leg to be discharged today as he wanted to get out of the car to use bathroom or going to restaurant to eat, cousin updated who is in agreement to have him discharged tomorrow morning hotel office manager working diligently to get him accepted to a intermediate in [place] Vitals/I&O/Wt Last Vital Signs Temp 99.3 F 07/15/21 08:00 Pulse 113 H 07/15/21 08:00 Resp 18 07/15/21 08:00 BP 108/65 07/15/21 08:00 Pulse Ox 91 07/15/21 08:00 07/14/21 07/15/21 07/15/21 22:59 06:59 14:59 Intake Total 120 / 1480 210 / 1690 200 / 200 Output Total 600 / 600 Balance 120 / 1480 -390 / 1090 200 / 200 Physical Exam Narrative: EXAM NARRATIVE: EOMI, PERRLA neuro nonfocal neuro exam Clinically dehydrated Abdomen soft Saturating well on room air 2 person assist Awake and alert EOMI, PERRLA Nonfocal neuro exam No audible stridor or wheeze Urinary Catheter Management: Mcpherson: Cath Placed During This Visit: yes Reason for Continuing Indwelling Catheter: Acute Urinary Retention or Obstruction Urinary Catheter Date of Insertion: 07/13/21 Urinary Catheter Time of Insertion: 12:50 Data : 07/14/21 05:19 07/15/21 05:47 A&P Assessment and plan (1) S/P ORIF (open reduction internal fixation) fracture: Status: Acute (2) Fall: Status: Acute Qualifiers: Encounter type: initial encounter Qualified Code(s): W19.XXXA - Unspecified fall, initial encounter (3) BPH (benign prostatic hyperplasia): Status: Chronic Qualifiers: Lower urinary tract symptom detail: urinary frequency Lower urinary tract symptom presence: symptoms present Qualified Code(s): N40.1 - Benign prostatic hyperplasia with lower urinary tract symptoms; R35.0 - Frequency of micturition (4) Chronic kidney disease, stage 3a: Status: Acute (5) Gait instability: Status: Chronic (6) Intertrochanteric fracture of right hip: Status: Acute Qualifiers: Encounter type: initial encounter Fracture alignment: nondisplaced Fracture type: closed Qualified Code(s): S72.144A - Nondisplaced intertrochanteric fracture of right femur, initial encounter for closed fracture (7) Hypothyroid: Status: Chronic Qualifiers: Hypothyroidism type: acquired Qualified Code(s): E03.9 - Hyp othyroidism, unspecified Plan Right hip fracture status post intervention Patient has not regained strength of right leg in order to be released from the hospital, He will get intermediate referral in [place] Plan to discharge him with the Mcpherson catheter Pain under control Orthopedics recommended aspirin for DVT prophylaxis Acute on chronic kidney disease creatinine 1.6 Continue IV fluids BPH: Currently has Mcpherson catheter which is draining concentrated urine Full code Diet DVT prophylaxis aspirin Attestations Medical Necessity Statement*: Discharge tomorrow Time Spent in Patient Care: 15 Coding Level of Care Code Acute Airline Station Agent for [facility] Fwd Diagnoses S/P ORIF (open reduction internal fixation) fracture Z98.890; Z87.81 Fall W19.XXXA Encounter type: initial encounter BPH (benign prostatic hyperplasia) N40.1; R35.0 Lower urinary tract symptom detail: urinary frequency Lower urinary tract symptom presence: symptoms present Chronic kidney disease, stage 3a N18.31 Gait instability R26.81 Intertrochanteric fracture of right hip S72.144A Encounter type: initial encounter Fracture alignment: nondisplaced Fracture type: closed Hypothyroid E03.9 Hypothyroidism type: acquired
[2021-07-15 12:00] VITALS: BP 98/61; PULSE 106; RESP 18; TEMP 37; O2SAT 92
--- NOTE | 2021-07-15 12:38 | PC.SOCIAL ---
Pg 2 IMM Explained to pt Pg 2 IMM. No questions voiced. Provided pt a copy. Initialed, dated, & timed a copy & placed in chart.
[2021-07-15] MEDS: insulin lispro 100 unit/1 mL SUBCUT ×2 (13:26→18:00)
[2021-07-15 15:16] VITALS: BP 102/63; PULSE 91; RESP 18; TEMP 37.1; O2SAT 92
--- NOTE | 2021-07-15 17:46 | PC.NURSE ---
Per Dr Gutiérrez, mendiola can be left in.
[2021-07-15 19:08] VITALS: BP 114/61; PULSE 98; RESP 20; TEMP 36.7; O2SAT 92
[2021-07-15] MEDS: sennosides 8.6 mg Tablet 17.2 MG PO (20:50)
[2021-07-15 21:01] LABS: Glucose Point of Care 162 mg/dL (70-110)
[2021-07-15 21:01] LABS: Glucose Point of Care 148 mg/dL (70-110)
[2021-07-15 21:40] LABS: Glucose Point of Care 134 mg/dL (70-110)
[2021-07-15 23:11] VITALS: BP 119/67; PULSE 92; RESP 16; TEMP 37; O2SAT 95
[2021-07-16] MEDS: HYDROcodone-acetaminophen 5-325 mg Tablet 1 TAB PO ×3 (01:39→18:51)
[2021-07-16 03:10] VITALS: BP 124/62; PULSE 95; RESP 20; TEMP 37.3; O2SAT 93
[2021-07-16 05:10] LABS: Anion Gap 15.8 (5-19); Blood Urea Nitrogen 32 mg/dL (8-23); Calcium 7.7 mg/dL (8.5-10.5); Carbon Dioxide 22 mmol/L (22-29); Chloride 104 mmol/L (98-107); Glucose 119 mg/dL (65-115); Osmolality Calculated 294 mOsm/kg (285-295); Potassium 3.8 mmol/L (3.5-5.1); Sodium 138 mmol/L (136-145)
[2021-07-16 06:50] LABS: Glucose Point of Care 125 mg/dL (70-110)
[2021-07-16 07:53] VITALS: BP 105/62; PULSE 91; RESP 16; TEMP 36.8; O2SAT 90
[2021-07-16] MEDS: docusate sodium 100 mg Capsule PO ×2 (09:43→18:41)
[2021-07-16] MEDS: levothyroxine 100 mcg Tablet PO (09:43)
[2021-07-16] MEDS: aspirin 325 mg EC Tablet PO (09:43)
[2021-07-16] MEDS: pantoprazole DR 40 mg Tablet PO (09:43)
[2021-07-16] MEDS: atorvastatin 40 mg Tablet 20 MG PO (09:43)
[2021-07-16] MEDS: tamsulosin 0.4 mg Capsule PO (09:44)
[2021-07-16] MEDS: finasteride 5 mg Tablet PO (09:44)
[2021-07-16] MEDS: allopurinol 300 mg Tablet PO (09:44)
[2021-07-16] MEDS: sennosides-docusate Tablet 1 TAB PO (09:44)
[2021-07-16] MEDS: gabapentin 100 mg Capsule PO ×4 (09:44→21:15)
[2021-07-16] MEDS: oxybutynin 5 mg Tablet PO ×2 (09:44→21:15)
[2021-07-16] MEDS: ketoconazole Cream 15 gm 1 APPLIC TOPICAL (09:49)
[2021-07-16] MEDS: latanoprost 0.005% Op Soln 2.5 mL Btl 1 DROP OPHTHALMIC (09:52)
[2021-07-16 11:50] VITALS: BP 124/73; PULSE 95; RESP 16; TEMP 37.2; O2SAT 93
[2021-07-16 12:09] LABS: Glucose Point of Care 203 mg/dL (70-110)
--- NOTE | 2021-07-16 13:41 | PM.PN ---
Subjective Subjective: Interval history: Patient will be discharged on Sunday once he got accepted, He is motivated to use a rolling walker, Leg pain gets worse on ambulation otherwise stable at rest Afebrile Creatinine stable at 1.6 Vitals/I&O/Wt Last Vital Signs Temp 98.9 F 07/16/21 11:50 Pulse 95 07/16/21 11:50 Resp 16 07/16/21 11:50 BP 124/73 07/16/21 11:50 Pulse Ox 93 07/16/21 11:50 07/15/21 07/16/21 07/16/21 22:59 06:59 14:59 Intake Total 1060 / 1600 200 / 1800 360 / 360 Output Total 460 / 460 450 / 910 Balance 600 / 1140 -250 / 890 360 / 360 Physical Exam Narrative: EXAM NARRATIVE: Sitting in his chair Eating breakfast Saturating well on room air Looks euvolemic Awake and alert Appropriate mood and affect No sign of ischemia of legs Nonlabored breathing Urinary Catheter Management: Mcpherson: Cath Placed During This Visit: yes Reason for Continuing Indwelling Catheter: Acute Urinary Retention or Obstruction Urinary Catheter Date of Insertion: 07/13/21 Urinary Catheter Time of Insertion: 12:50 Data : 07/14/21 05:19 07/16/21 03:55 A&P Assessment and plan (1) S/P ORIF (open reduction internal fixation) fracture: Status: Acute (2) Fall: Status: Acute Qualifiers: Encounter type: initial encounter Qualified Code(s): W19.XXXA - Unspecified fall, initial encounter (3) Peripheral neuropathy: Status: Acute Qualifiers: Peripheral neuropathy type: polyneuropathy associated with underlying disease Qualified Code(s): G63 - Polyneuropathy in diseases classified elsewhere (4) Gait instability: Status: Chronic (5) Dizziness: Status: Chronic (6) Chronic kidney disease, stage 3a: Status: Acute (7) Diabetes mellitus, type II: Status: Acute Qualifiers: Diabetes mellitus halfway insulin use: without vermin exterminator use Diabetes mellitus complication status: with neurologic complications Diabetes mellitus complication detail: with polyneuropathy Qualified Code(s): E11.42 - Type 2 diabetes mellitus with diabetic polyneuropathy (8) BPH (benign prostatic hyperplasia): Status: Chronic Qualifiers: Lower urinary tract symptom detail: urinary frequency Lower urinary tract symptom presence: symptoms present Qualified Code(s): N40.1 - Benign prostatic hyperplasia with lower urinary tract symptoms; R35.0 - Frequency of micturition Plan Plan to release him on Sunday once he get accepted to a usp in [place] This might be difficult over the weekend He still has to make progress, encouraged him to use bedside rolling walker, PT to see him on daily basis to increase his endurance and strength Pain at rest bearable Creatinine stable at 1.6 Clinically euvolemic Full code Regular diet DVT prophylaxis full dose aspirin Attestations Medical Necessity Statement*: Discharge on Sunday Time Spent in Patient Care: 15 minutes Coding Level of Care Code Acute Service Center Coordinator for [facility] Fwd Diagnoses S/P ORIF (open reduction internal fixation) fracture Z98.890; Z87.81 Fall W19.XXXA Encounter type: initial encounter Peripheral neuropathy G63 Peripheral neuropathy type: polyneuropathy associated with underlying disease Gait instability R26.81 Dizziness R42 Chronic kidney disease, stage 3a N18.31 Diabetes mellitus, type II E11.42 Diabetes mellitus halfway insulin use: without vermin exterminator use Diabetes mellitus complication status: with neurologic complications Diabetes mellitus complication detail: with polyneuropathy BPH (benign prostatic hyperplasia) N40.1; R35.0 Lower urinary tract symptom detail: urinary frequency Lower urinary tract symptom presence: symptoms present
[2021-07-16] MEDS: insulin lispro 100 unit/1 mL SUBCUT ×3 (13:46→21:15)
[2021-07-16] MEDS: FUROsemide 20 mg Tablet PO (13:54)
[2021-07-16 16:00] VITALS: BP 104/62; PULSE 91; RESP 16; TEMP 37.3; O2SAT 91
[2021-07-16 17:30] LABS: Glucose Point of Care 197 mg/dL (70-110)
[2021-07-16 20:00] VITALS: BP 114/55; PULSE 98; RESP 17; TEMP 37.4; O2SAT 90
[2021-07-16 20:27] LABS: Glucose Point of Care 187 mg/dL (70-110)
[2021-07-16] MEDS: sennosides 8.6 mg Tablet 17.2 MG PO (21:15)
[2021-07-17] VITALS (7 sets, daily range): BP systolic 103–153; BP diastolic 59–72; PULSE 76–97; RESP 16–17; TEMP 36.7–37.1; O2SAT 90–97
[2021-07-17] MEDS: HYDROcodone-acetaminophen 5-325 mg Tablet 1 TAB PO ×3 (02:15→12:25)
[2021-07-17 05:52] LABS: Blood Urea Nitrogen 34 mg/dL (8-23); Calcium 7.8 mg/dL (8.5-10.5); Carbon Dioxide 22 mmol/L (22-29); Chloride 105 mmol/L (98-107); Glucose 142 mg/dL (65-115); Osmolality Calculated 298 mOsm/kg (285-295); Sodium 139 mmol/L (136-145)
[2021-07-17 06:42] LABS: Glucose Point of Care 160 mg/dL (70-110)
[2021-07-17] MEDS: gabapentin 100 mg Capsule PO ×4 (07:32→20:00)
[2021-07-17] MEDS: levothyroxine 100 mcg Tablet PO (07:32)
[2021-07-17] MEDS: oxybutynin 5 mg Tablet PO ×2 (07:33→20:00)
[2021-07-17] MEDS: docusate sodium 100 mg Capsule PO ×2 (07:33→17:14)
[2021-07-17] MEDS: finasteride 5 mg Tablet PO (07:33)
[2021-07-17] MEDS: sennosides-docusate Tablet 1 TAB PO (07:33)
[2021-07-17] MEDS: atorvastatin 40 mg Tablet 20 MG PO (07:33)
[2021-07-17] MEDS: aspirin 325 mg EC Tablet PO (07:34)
[2021-07-17] MEDS: tamsulosin 0.4 mg Capsule PO (07:34)
[2021-07-17] MEDS: allopurinol 300 mg Tablet PO (07:34)
[2021-07-17] MEDS: FUROsemide 20 mg Tablet PO (07:34)
[2021-07-17] MEDS: pantoprazole DR 40 mg Tablet PO (07:34)
[2021-07-17] MEDS: insulin lispro 100 unit/1 mL SUBCUT ×4 (07:36→21:02)
[2021-07-17] MEDS: ketoconazole Cream 15 gm 1 APPLIC TOPICAL (07:36)
[2021-07-17] MEDS: latanoprost 0.005% Op Soln 2.5 mL Btl 1 DROP OPHTHALMIC (07:36)
--- NOTE | 2021-07-17 07:56 | P.PN_ITS ---
Subjective Subjective: Interval history: pt still reporting pain difficulty getting up because of pain. Vitals/I&O/Wt Last Vital Signs Temp 98.4 F 07/17/21 04:00 Pulse 97 07/17/21 04:00 Resp 17 07/17/21 04:00 BP 153/70 07/17/21 04:00 Pulse Ox 96 07/17/21 04:00 07/16/21 07/17/21 07/17/21 22:59 06:59 14:59 Intake Total 120 / 960 Output Total 650 / 650 300 / 950 Balance -530 / 310 -300 / 10 Physical Exam Narrative: EXAM NARRATIVE: pain controlled while in bed Urinary Catheter Management: Mcpherson: Cath Placed During This Visit: yes Reason for Continuing Indwelling Catheter: Acute Urinary Retention or Obstruction Urinary Catheter Date of Insertion: 07/13/21 Urinary Catheter Time of Insertion: 12:50 Data : 07/14/21 05:19 07/17/21 04:30 A&P Assessment and plan (1) S/P ORIF (open reduction internal fixation) fracture: Up with PT D/C planning Status: Acute Attestations Medical Necessity Statement*: per primary service Coding Level of Care Code Acute Prosthodontist/Owner for g Fwd Diagnoses S/P ORIF (open reduction internal fixation) fracture Z98.890; Z87.81
[2021-07-17 11:22] LABS: Glucose Point of Care 185 mg/dL (70-110)
--- NOTE | 2021-07-17 12:58 | P.PN_ITS ---
Subjective Subjective: Interval history: Plan to discharge him on Sunday once he get accepted to a long-term in [place] He is passing gas no bowel movement yet Voiding trial today Lactulose for constipation Stating that his pain gets worse on ambulation His cousin had concern regarding inadequate PT exercises, updated [facility] physical therapist Vitals/I&O/Wt Last Vital Signs Temp 98.4 F 07/17/21 08:00 Pulse 95 07/17/21 08:00 Resp 17 07/17/21 08:00 BP 128/72 07/17/21 08:00 Pulse Ox 93 07/17/21 08:00 07/16/21 07/17/21 07/17/21 22:59 06:59 14:59 Intake Total 120 / 960 180 / 180 Output Total 650 / 650 300 / 950 Balance -530 / 310 -300 / 10 180 / 180 Physical Exam Narrative: EXAM NARRATIVE: Patient was eating breakfast Cousin at the bedside S1, S2 Clinically euvolemic 900 ml in urine bag Abdomen soft Awake and alert Nonfocal neuro exam Urinary Catheter Management: Mcpherson: Cath Placed During This Visit: yes Reason for Continuing Indwelling Catheter: Acute Urinary Retention or Obstruction Urinary Catheter Date of Insertion: 07/13/21 Urinary Catheter Time of Insertion: 12:50 Data : 07/14/21 05:19 07/17/21 04:30 A&P Assessment and plan (1) S/P ORIF (open reduction internal fixation) fracture: Status: Acute (2) Fall: Status: Acute Qualifiers: Encounter type: initial encounter Qualified Code(s): W19.XXXA - Unspec ified fall, initial encounter (3) Peripheral neuropathy: Status: Acute Qualifiers: Peripheral neuropathy type: polyneuropathy associated with underlying disease Qualified Code(s): G63 - Polyneuropathy in diseases classified elsewhere (4) Chronic kidney disease, stage 3a: Status: Acute (5) Overactive bladder: Status: Acute (6) Hypertension: Status: Acute Qualifiers: Hypertension type: primary hypertension Qualified Code(s): I10 - Essential (primary) hypertension (7) Diabetes mellitus, type II: Status: Acute Qualifiers: Diabetes mellitus preschool assistant director insulin use: without preschool assistant director use Diabetes mellitus complication status: with neurologic complications Diabetes mellitus complication detail: with polyneuropathy Qualified Code(s): E11.42 - Type 2 diabetes mellitus with diabetic polyneuropathy (8) Intertrochanteric fracture of right hip: Status: Acute Qualifiers: Encounter type: initial encounter Fracture alignment: nondisplaced Fracture type: closed Qualified Code(s): S72.144A - Nondisplaced intertrochanteric fracture of right femur, initial encounter for closed fracture (9) BPH (benign prostatic hyperplasia): Status: Chronic Qualifiers: Lower urinary tract symptom detail: urinary frequency Lower urinary tract symptom presence: symptoms present Qualified Code(s): N40.1 - Benign prostatic hyperplasia with lower urinary tract symptoms; R35.0 - Frequency of micturition (10) GERD (gastroesophageal reflux disease): Status: Chronic Qualifiers: Esophagitis presence: without esophagitis Qualified Code(s): K21.9 - Gastro-esophageal reflux disease without esophagitis Plan Hip fracture status post intervention No postoperative complication Mcpherson catheter was placed for accurate output measurement for his chronic kidney disease His creatinine has slightly worsened with Lasix which was started during his hospitalization, I will discontinue Lasix His p.o. intake is adequate Voiding trial today Optimize pain medication For constipation we will give lactulose Plan to discharge him tomorrow once he get accepted in a long-term in [place], cousin is planning to drive him back to [place], it is a 10-hour drive, they have concern regarding getting out of car, voiding urine, able to use a walker Updated PT to see if he is optimized to get out of car Planning to discharge him on Sunday Attestations Medical Necessity Statement*: Discharge on Sunday Time Spent in Patient Care: 15 Coding Level of Care Code Acute Metal Mover for [facility] Fwd Diagnoses S/P ORIF (open reduction internal fixation) fracture Z98.890; Z87.81 Fall W19.XXXA Encounter type: initial encounter Peripheral neuropathy G63 Peripheral neuropathy type: polyneuropathy associated with underlying disease Chronic kidney disease, stage 3a N18.31 Overactive bladder N32.81 Hypertension I10 Hypertension type: primary hypertension Diabetes mellitus, type II E11.42 Diabetes mellitus preschool assistant director insulin use: without preschool assistant director use Diabetes mellitus complication status: with neurologic complications Diabetes mellitus complication detail: with polyneuropathy Intertrochanteric fracture of right hip S72.144A Encounter type: initial encounter Fracture alignment: nondisplaced Fracture type: closed BPH (benign prostatic hyperplasia) N40.1; R35.0 Lower urinary tract symptom detail: urinary frequency Lower urinary tract symptom presence: symptoms present GERD (gastroesophageal reflux disease) K21.9 Esophagitis presence: without esophagitis
[2021-07-17] MEDS: sennosides-docusate Tablet 2 TAB PO (14:21)
[2021-07-17] MEDS: lactulose oral liq 20 gm/30 mL UDC PO (14:21)
--- NOTE | 2021-07-17 14:38 | PC.SOCIAL ---
IMM update IMM updated with patient. Copy Pg 2 provided. Verbalized an understanding. Initialled, dated, timed, and placed in chart.
--- NOTE | 2021-07-17 16:00 | PC.NURSE ---
Pt requested to leave mendiola catheter in at this time. Dr. Gutiérrez aware and okay with this.
[2021-07-17 16:47] LABS: Glucose Point of Care 226 mg/dL (70-110)
[2021-07-17] MEDS: sennosides 8.6 mg Tablet 17.2 MG PO (20:00)
[2021-07-17] MEDS: oxyCODONE-APAP 10-325 mg Tablet 1 TAB PO (20:03)
[2021-07-17 20:46] LABS: Glucose Point of Care 148 mg/dL (70-110)
[2021-07-18] VITALS (9 sets, daily range): BP systolic 113–134; BP diastolic 62–70; PULSE 76–105; RESP 16–18; TEMP 36.6–37.3; O2SAT 60–97
[2021-07-18 04:15] LABS: Blood Urea Nitrogen 33 mg/dL (8-23); Calcium 7.9 mg/dL (8.5-10.5); Carbon Dioxide 24 mmol/L (22-29); Chloride 106 mmol/L (98-107); Glucose 158 mg/dL (65-115); Osmolality Calculated 303 mOsm/kg (285-295); Sodium 141 mmol/L (136-145)
[2021-07-18 06:55] LABS: Glucose Point of Care 151 mg/dL (70-110)
[2021-07-18] MEDS: sennosides-docusate Tablet 2 TAB PO (09:21)
[2021-07-18] MEDS: docusate sodium 100 mg Capsule PO ×2 (09:21→18:25)
[2021-07-18] MEDS: pantoprazole DR 40 mg Tablet PO (09:21)
[2021-07-18] MEDS: oxybutynin 5 mg Tablet PO ×2 (09:21→20:42)
[2021-07-18] MEDS: gabapentin 100 mg Capsule PO ×4 (09:22→20:42)
[2021-07-18] MEDS: aspirin 325 mg EC Tablet PO (09:22)
[2021-07-18] MEDS: tamsulosin 0.4 mg Capsule PO (09:22)
[2021-07-18] MEDS: atorvastatin 40 mg Tablet 20 MG PO (09:22)
[2021-07-18] MEDS: allopurinol 300 mg Tablet PO (09:22)
[2021-07-18] MEDS: finasteride 5 mg Tablet PO (09:22)
[2021-07-18] MEDS: insulin lispro 100 unit/1 mL SUBCUT ×4 (09:22→22:04)
[2021-07-18] MEDS: levothyroxine 100 mcg Tablet PO (09:22)
[2021-07-18] MEDS: oxyCODONE-APAP 10-325 mg Tablet 1 TAB PO ×3 (09:23→20:46)
[2021-07-18] MEDS: ketoconazole Cream 15 gm 1 APPLIC TOPICAL (13:07)
[2021-07-18] MEDS: latanoprost 0.005% Op Soln 2.5 mL Btl 1 DROP OPHTHALMIC (13:07)
[2021-07-18 13:51] LABS: Glucose Point of Care 269 mg/dL (70-110)
[2021-07-18 17:16] LABS: Glucose Point of Care 176 mg/dL (70-110)
--- NOTE | 2021-07-18 17:29 | P.PN_ITS ---
Subjective Subjective: Interval history: Patient states that his pain was a 10 out of 10 earlier. But now at rest it is a 7 out of 10. Vitals/I&O/Wt Last Vital Signs Temp 97.9 F 07/18/21 15:47 Pulse 93 07/18/21 15:47 Resp 17 07/18/21 15:47 BP 113/66 07/18/21 15:47 Pulse Ox 91 07/18/21 15:47 07/18/21 07/18/21 07/18/21 06:59 14:59 22:59 Intake Total 360 / 360 Output Total 1350 / 2450 Balance -1350 / -1910 360 / 360 Physical Exam Narrative: EXAM NARRATIVE: Patient seen sitting in his chair at the bedside. He is in no acute acute distress at time of exam Heart: Regular normal S1-S2 without murmurs clicks gallops rubs Lungs: Clear to auscultation without wheezes rales or rhonchi Abdomen: Soft nontender nondistended positive bowel sounds Extremities: No clubbing cyanosis edema. Musculoskeletal: Pain with movement of right lower extremity Skin: Vitiligo Urinary Catheter Management: Mendiola: Cath Placed During This Visit: yes Reason for Continuing Indwelling Catheter: Required Immobilization for Trauma or Surgery or Anesthesia Urinary Catheter Date of Insertion: 07/13/21 Urinary Catheter Time of Insertion: 12:50 Data : 07/14/21 05:19 07/18/21 02:57 A&P Assessment and plan (1) S/P ORIF (open reduction internal fixation) fracture: Status: Acute (2) Fall: Status: Acute Qualifiers: Encounter type: initial encounter Qualified Code(s): W19.XXXA - Unspecified fall, initial encounter (3) Peripheral neuropathy: Status: Acute Qualifiers: Peripheral neuropathy type: polyneuropathy associated with underlying disease Qualified Code(s): G63 - Polyneuropathy in diseases classified elsewhere (4) Chronic kidney disease, stage 3a: Status: Acute (5) Overactive bladder: Status: Acute (6) Hypertension: Status: Acute Qualifiers: Hypertension type: primary hypertension Qualified Code(s): I10 - Essential (primary) hypertension (7) Diabetes mellitus, type II: Status: Acute Qualifiers: Diabetes mellitus complication detail: with polyneuropathy Diabetes mellitus complication status: with neurologic complications Diabetes mellitus mcfp insulin use: without semi automatic sewing machine operator use Qualified Code(s): E11.42 - Type 2 diabetes mellitus with diabetic polyneuropathy (8) Intertrochanteric fracture of right hip: Status: Acute Qualifiers: Encounter type: initial encounter Fracture alignment: nondisplaced Fracture type: closed Qualified Code(s): S72.144A - Nondisplaced intertrochanteric fracture of right femur, initial encounter for closed fracture (9) BPH (benign prostatic hyperplasia): Status: Chronic Qualifiers: Lower urinary tract symptom detail: urinary frequency Lower urinary tract symptom presence: symptoms present Qualified Code(s): N40.1 - Benign prostatic hyperplasia with lower urinary tract symptoms; R35.0 - Frequency of micturition (10) GERD (gastroesophageal reflux disease): Status: Chronic Qualifiers: Esophagitis presence: without esophagitis Qualified Code(s): K21.9 - Gastro-esophageal reflux disease without esophagitis Plan Hip fracture status post intervention No postoperative complication Mendiola catheter was placed for accurate output measurement for his chronic kidney disease His creatinine has slightly worsened with Lasix which was started during his hospitalization; discontinued Lasix yesterday His p.o. intake is adequate opiod for pain medication; has taken 2 doses today 6 hours apart. I added sche duled celebrex. For constipation we will give lactulose Plan to discharge him once he get accepted in a care home in [place], cousin is planning to drive him back to [place], it is a [address], will maintain mendiola for this trip. Updated PT to see if he is optimized to get out of car Attestations Medical Necessity Statement*: Improved pain control for 10-hour car ride home Coding Level of Care Code Acute Chemical Supervisor for [facility] Fwd Diagnoses S/P ORIF (open reduction internal fixation) fracture Z98.890; Z87.81 Fall W19.XXXA Encounter type: initial encounter Peripheral neuropathy G63 Peripheral neuropathy type: polyneuropathy associated with underlying disease Chronic kidney disease, stage 3a N18.31 Overactive bladder N32.81 Hypertension I10 Hypertension type: primary hypertension Diabetes mellitus, type II E11.42 Diabetes mellitus complication detail: with polyneuropathy Diabetes mellitus complication status: with neurologic complications Diabetes mellitus semi automatic sewing machine operator insulin use: without mcfp use Intertrochanteric fracture of right hip S72.144A Encounter type: initial encounter Fracture alignment: nondisplaced Fracture type: closed BPH (benign prostatic hyperplasia) N40.1; R35.0 Lower urinary tract symptom detail: urinary frequency Lower urinary tract symptom presence: symptoms present GERD (gastroesophageal reflux disease) K21.9 Esophagitis presence: without esophagitis
[2021-07-18] MEDS: CELEcoxib 200 mg Capsule 400 MG PO (18:25)
[2021-07-18] MEDS: sennosides 8.6 mg Tablet 17.2 MG PO (20:42)
[2021-07-18] MEDS: Fleet Enema 133 mL Enema PR (20:48)
[2021-07-18 21:41] LABS: Glucose Point of Care 153 mg/dL (70-110)
[2021-07-19] VITALS: BP 108/64; PULSE 80; RESP 17; TEMP 36.4; O2SAT 97
[2021-07-19 04:00] VITALS: BP 119/69; PULSE 67; RESP 16; TEMP 36.8; O2SAT 94
[2021-07-19 06:45] LABS: Glucose Point of Care 164 mg/dL (70-110)
[2021-07-19 08:00] VITALS: BP 126/76; PULSE 93; RESP 18; TEMP 36.6; O2SAT 94
--- NOTE | 2021-07-19 08:10 | P.PN_ITS ---
Subjective Subjective: Tolerating p.o. intake. Pain much better. Mcpherson in place. Wants to go back to [place]. Vitals/I&O/Wt Last Vital Signs Temp 98.2 F 07/19/21 04:00 Pulse 67 07/19/21 04:00 Resp 16 07/19/21 04:00 BP 119/69 07/19/21 04:00 Pulse Ox 94 07/19/21 04:00 07/18/21 07/19/21 07/19/21 22:59 06:59 14:59 Intake Total 120 / 480 Output Total 900 / 900 400 / 1300 Balance -780 / -420 -400 / -820 Physical Exam Narrative: Minimal swelling right thigh. Minimal pain with motion right hip. Urinary Catheter Management: Mcpherson: Cath Placed During This Visit: yes Reason for Continuing Indwelling Catheter: Acute Urinary Retention or Obstruction Urinary Catheter Date of Insertion: 07/13/21 Urinary Catheter Time of Insertion: 12:50 Data : 07/14/21 05:19 07/18/21 02:57 A&P Assessment and plan (1) S/P ORIF (open reduction internal fixation) fracture: Continue to mobilize with therapy. Awaiting discharge. Status: Acute Attestations Medical Necessity Statement*: Okay for discharge per Ortho. Coding Level of Care Code Acute [facility] Diagn[facility] S/P ORIF (open reduction internal fixation) fracture Z98.890; Z87.81
[2021-07-19] MEDS: pantoprazole DR 40 mg Tablet PO (08:57)
[2021-07-19] MEDS: aspirin 325 mg EC Tablet PO (08:57)
[2021-07-19] MEDS: CELEcoxib 200 mg Capsule PO (08:57)
[2021-07-19] MEDS: atorvastatin 40 mg Tablet 20 MG PO (08:57)
[2021-07-19] MEDS: finasteride 5 mg Tablet PO (08:57)
[2021-07-19] MEDS: allopurinol 300 mg Tablet PO (08:57)
[2021-07-19] MEDS: latanoprost 0.005% Op Soln 2.5 mL Btl 1 DROP OPHTHALMIC (08:58)
[2021-07-19] MEDS: oxybutynin 5 mg Tablet PO (08:58)
[2021-07-19] MEDS: levothyroxine 100 mcg Tablet PO (08:58)
[2021-07-19] MEDS: sennosides-docusate Tablet 2 TAB PO (08:58)
[2021-07-19] MEDS: tamsulosin 0.4 mg Capsule PO (08:58)
[2021-07-19] MEDS: docusate sodium 100 mg Capsule PO (08:58)
[2021-07-19] MEDS: insulin lispro 100 unit/1 mL SUBCUT (08:58)
[2021-07-19] MEDS: gabapentin 100 mg Capsule PO (08:58)
[2021-07-19] MEDS: ketoconazole Cream 15 gm 1 APPLIC TOPICAL (08:59)
[2021-07-19 09:03] VITALS: RESP 18
[2021-07-19] MEDS: oxyCODONE-APAP 10-325 mg Tablet 1 TAB PO (09:03)
--- NOTE | 2021-07-19 11:30 | PM.DCS ---
Discharge Providers Date of Admission: 07/12/21 14:39 Date of Discharge: July 19, 2021 Attending Provider at Admission: Della Gregorio MD Attending Provider at Discharge: Tahir Stout DO Diagnoses at Discharge Discharge Diagnosis (1) S/P ORIF (open reduction internal fixation) fracture: Status: Acute Reason for Visit Reason for Visit: R HIP PAIN, GROUND LEVEL FALL Hospital Course Hospital Course Patient is admitted for a right hip fracture post-ORIF. Patient is from [place] and arrangements were attempted for SNF placement in [place]. However this was not able to be accomplished. Patient had difficulty with anticipatory pain and a history of having required outpatient physical therapy prior to admission. After conversation with interdisciplinary team as well as cousin it was determined that patient could be discharged to home since cousin lives with patient. Patient already has a walker at home: Arrangements being made for wheelchair; this will allow access to the home. In case management will arrange for home health care for physical therapy at home. He will be given 3 days worth of opioid pain medication and Celebrex will be continued for his pain. Regarding his constipation I changed him to MiraLAX. And then he is advised to take milk of magnesia at once he gets home Physical Exam Narrative: Patient in no acute distress at time of exam Cardiac heart is regular rate and rhythm normal S1-S2 without murmurs clicks gallops or rubs Lungs clear to auscultation without wheezes rales or rhonchi Abdomen soft mild diffuse tenderness no rebound rigidity or guarding bowel sounds are hypoactive Extremities no significant edema Patient observed getting out of bed using walker with physical therapy and taking a few steps. Urinary Catheter Management: Mcpherson: Cath Placed During This Visit: yes Reason for Continuing Indwelling Catheter: Acute Urinary Retention or Obstruction Urinary Catheter Date of Insertion: 07/13/21 Urinary Catheter Time of Insertion: 12:50 Discharge Data Studies Completed and Pending Completed Studies During Hospitalization Category Date Time Status XR chest 1V portable [id number] Routine Exams 07/14/21 07:34 Completed XR chest 1V portable [id number] Urgent Exams 07/12/21 13:59 Completed XR femur RT min 2V* [id number] Routine Exams 07/13/21 Completed XR hip RT 2-3V wo/w pel* [id number] Stat Exams 07/12/21 13:29 Completed Radiology Impressions Hip/Pelvis X-Ray 07/12/21 13:29 IMPRESSION: Complex intertrochanteric fracture of the right hip. Abnormality of the junction of the superior and inferior pubic ramus as above. Femur X-Ray 07/13/21 00:00 IMPRESSION: Internal fixation of right hip fracture without abnormality. Laboratory Results WBC 12.0 10^3/uL (4.0-10.0) H 07/14/21 05:19 RBC 3.13 10^6/uL (4.1-5.3) L 07/14/21 05:19 Hgb 10.2 g/dL (11.7-16.6) L 07/14/21 05:19 Hct 32.4 % (42.0-52.0) L 07/14/21 05:19 MCV 103.5 fl (80-94) H 07/14/21 05:19 MCH 32.6 pg (28.0-34.0) 07/14/21 05:19 MCHC 31.5 g/dL (30.0-36.0) 07/14/21 05:19 RDW 14.6 % (12.1-15.1) 07/14/21 05:19 Plt Count 158 10^3/cmm (130-400) 07/14/21 05:19 MPV 10.3 fL (7.4-10.4) 07/14/21 05:19 Neut % (Auto) 79.5 % 07/14/21 05:19 Lymph % (Auto) 9.7 % 07/14/21 05:19 Sampson % (Auto) 8.0 % 07/14/21 05:19 Eos % (Auto) 1.8 % 07/14/21 05:19 Baso % (Auto) 0.3 % 07/14/21 05:19 Neut # (Auto) 9.53 10^3/uL (1.8-7.7) H 07/14/21 05:19 Lymph # (Auto) 1.2 10^3/uL (0.8-4.8) 07/14/21 05:19 Sampson # (Auto) 1.0 10^3/uL (0.2-0.9) H 07/14/21 05:19 Eos # (Auto) 0.2 10^3/uL (0.0-0.8) 07/14/21 05:19 Baso # (Auto) 0.0 10^3/uL (0.0-0.1) 07/14/21 05:19 Nucleated RBC % (auto) 0 % 07/14/21 05:19 Nucleated RBCs # 0.0 /100WBC 07/14/21 05:19 PT 13.90 SECONDS (12.1-14.9) 07/13/21 04:27 INR 1.04 (0.8-1.2) 07/13/21 04:27 APTT 34.7 SECONDS (23.9-36.7) 07/12/21 15:00 Sodium 141 mmol/L (136-145) 07/18/21 02:57 Potassium 4.0 mmol/L (3.5-5.1) 07/18/21 02:57 Chloride 106 mmol/L (98-107) 07/18/21 02:57 Carbon Dioxide 24 mmol/L (22-29) 07/18/21 02:57 Anion Gap 15.0 (5-19) 07/18/21 02:57 BUN 33 mg/dL (8-23) H 07/18/21 02:57 Creatinine 1.8 mg/dL (0.7-1.2) H 07/18/21 02:57 GFR Calculation Not Reportable 07/18/21 02:57 Glucose 158 mg/dL (65-115) H 07/18/21 02:57 POC Glucose 164 mg/dL (70-110) H 07/19/21 06:34 Calculated Osmolality 303 mOsm/kg (285-295) H 07/18/21 02:57 Calcium 7.9 mg/dL (8.5-10.5) L 07/18/21 02:57 Magnesium 1.3 mg/dL (1.7-2.3) L 07/13/21 04:27 Total Bilirubin 0.3 mg/dL (0.15-1.2) 07/12/21 15:00 AST 22 U/L (0-40) 07/12/21 15:00 ALT 13 U/L (0-41) 07/12/21 15:00 Alkaline Phosphatase 103 IU/L (40-130) 07/12/21 15:00 NT-Pro-B Natriuret Pep 662 pg/mL (0-450) H 07/13/21 04:27 Total Protein 6.4 g/dL (6.6-8.7) L 07/12/21 15:00 Albumin 4.1 g/dL (3.5-5.2) 07/12/21 15:00 Globulin 2.3 g/dL (1.3-4.6) 07/12/21 15:00 Urine Color Yellow (Yellow) 07/13/21 02:25 Urine Appearance Clear (CLEAR) 07/13/21 02:25 Urine pH 5 (5-7) 07/13/21 02:25 Ur Specific [place] 1.005 (1.005-1.030) 07/13/21 02:25 Urine Protein Neg (Negative) 07/13/21 02:25 Urine Glucose (UA) Norm (Normal) 07/13/21 02:25 Urine Ketones Negative (Negative) 07/13/21 02:25 Urine Blood Neg (Negative) 07/13/21 02:25 Urine Nitrate Negative (Negative) 07/13/21 02:25 Urine Bilirubin Neg (Negative) 07/13/21 02:25 Urine Urobilinogen Norm mg/dL (Negative) 07/13/21 02:25 Ur Leukocyte Esterase Negative (Negative) 07/13/21 02:25 Vitals Last Vital Signs Temp 97.8 F 07/19/21 08:00 Pulse 93 07/19/21 08:00 Resp 18 07/19/21 09:03 BP 126/76 07/19/21 08:00 Pulse Ox 94 07/19/21 08:00 Discharge Plan Discharge Patient Disposition: Home Condition: Stable Prescriptions: New oxycodone-acetaminophen 10-325 mg Tablet 1 tab PO Q6H PRN (Reason: Moderate Pain) 3 Days Qty: 10 0RF celecoxib 200 mg Capsule 200 mg PO Q12H 30 Days Qty: 60 0RF polyethylene glycol 3350 17 gram Powder In Packet 17 g PO BID 30 Days Qty: 60 0RF Continued latanoprost 0.005 % drops 1 drp ophthalmic (eye) DAILY 0RF metformin 850 mg tablet 850 mg PO DAILY 0RF omeprazole 40 mg capsule,delayed release(DR/EC) 40 mg PO DAILY 0RF Euthyrox 100 mcg tablet 100 mcg PO DAILY 0RF tamsulosin 0.4 mg capsule 0.4 mg PO DAILY 0RF meclizine 25 mg tablet 25 mg PO DAILY PRN (Reason: Dizziness) 0RF simvastatin 20 mg tablet 20 mg PO DAILY 0RF allopurinol 300 mg tablet 300 mg PO DAILY 0RF hydrochlorothiazide 25 mg tablet 25 mg PO DAILY 0RF gabapentin 100 mg capsule 200 mg PO BID 0RF lisinopril-hydrochlorothiazide 10-12.5 mg tablet 1 tab PO DAILY 0RF ketoconazole 2 % cream 1 applic TOPICAL DAILY 0RF oxybutynin chloride 5 mg tablet 5 mg PO DAILY 0RF finasteride 5 mg tablet 5 mg PO DAILY 0RF Discharge Orders: Discharge Order (Routine); Ordered 07/19/21 Ordered By: Tahir Stout Other Ambulatory Orders: DME: Wheelchair (Order) Location: None Selected Ordered By: Tahir Stout Discharge Diet: Usual diet Discharge Activity: Increase activity as tolerated Patient Instructions: Opioid Safety Activity Restrictions/Additional Instructions: Recommend MIlk of Magnesium once home or even Magnesium citrate for BM. Discharge Attestations Time Spent in Discharge Care*: greater than 30 min Quality Metrics Clinical Quality Measures [ No reported AMI, CVA or VTE this stay] Coding Level of Care Code Acute [facility] DC note Diagnoses S/P ORIF (open reduction internal fixation) fracture Z98.890; Z87.81
[2021-07-19 11:44] VITALS: BP 95/59; PULSE 90; RESP 18; TEMP 36.6; O2SAT 92
[2021-07-19 12:44] LABS: Glucose Point of Care 163 mg/dL (70-110)
--- NOTE | 2021-07-19 14:52 | PC.OT ---
OT TREATMENT HELD THIS DATE DUE TO SCHEDULED PATIENT DISCHARGE
[2021-07-19 15:40] VITALS: BP 95/59; PULSE 90; RESP 18; TEMP 36.6; O2SAT 92
== END 2021-07-19 15:41 | disposition home health service (06) | DRG 482 ==
LOC: ER 19:37 → MEDSURG 19:53
PROVIDERS: Internal Medicine; Orthopaedic Surgery; Admitting Provider Hospitalist; Emergency Provider Family Medicine; Visit Provider Internal Medicine
PROC: 0QS606Z Reposition Right Upper Femur with Intramedullary Internal Fixation Device, Open Approach (ICD-10-PCS; CPT 27245; principal; 2021-07-13 12:00)
DX: S72.144A Nondisplaced intertrochanteric fracture of right femur, initial encounter for closed fracture (principal); W18.30XA Fall on same level, unspecified, initial encounter; Y93.89 Activity, other specified; Y92.524 Gas station as the place of occurrence of the external cause; N40.1 Benign prostatic hyperplasia with lower urinary tract symptoms; R35.0 Frequency of micturition; Z86.16 Personal history of COVID-19; E11.22 Type 2 diabetes mellitus with diabetic chronic kidney disease; E11.40 Type 2 diabetes mellitus with diabetic neuropathy, unspecified; I12.9 Hypertensive chronic kidney disease with stage 1 through stage 4 chronic kidney disease, or unspecified chronic kidney disease; N18.31 Chronic kidney disease, stage 3a; K21.9 Gastro-esophageal reflux disease without esophagitis; M10.9 Gout, unspecified; E78.5 Hyperlipidemia, unspecified; E03.9 Hypothyroidism, unspecified; Z96.653 Presence of artificial knee joint, bilateral; Z96.619 Presence of unspecified artificial shoulder joint; H40.9 Unspecified glaucoma; Z87.442 Personal history of urinary calculi; Z87.891 Personal history of nicotine dependence; R42 Dizziness and giddiness; K59.00 Constipation, unspecified; Z79.84 Long term (current) use of oral hypoglycemic drugs
CPT/HCPCS: 36415; 36416; 51702; 71045; 73502; 73552; 76000; 80048; 80053; 81003; 82962; 83735; 83880; 85025; 85610; 85730; 93005; 96372; 97110; 97116; 97161; 97167; 97530; 97535; C1713; J0690; J1815; J2270; J2370; J2704; J3010; J3480; J7030

== ENCOUNTER 2022-02-09 11:36 | Emergency (ER) | payer MEDICARE, OTHER, SELFPAY ==
[2022-02-09 11:51] VITALS: BP 180/73; PULSE 81; RESP 16; TEMP 36.6; O2SAT 98
--- NOTE | 2022-02-09 12:19 | ED_ITS ---
HPI - Fall General: Chief Complaint: Fall Stated Complaint: fall/hand injury Time Seen by Provider: 02/09/22 12:03 History of Present Illness: This is an 86-year-old male that is in today for a fall. He reports that he actually had fallen and came to the hospital before and had to use a wheelchair to leave and get back home to [place]. He had come back to [place] to bring the wheelchair back and fell this morning in the hotel walking towards the elevator. He reports that his shoe caught on the rug causing him to fall. He reports that he has a scrape above his right eye he thinks from his glasses. His family member reports witnessing the fall. He states that the patient did not really hit his head, but his glasses hit the floor and scratched his head after he landed. he denies any loss of consciousness, headache, numbness, tingling, weakness. He reports pain in his right hand thumb side and also some strong discomfort in his right lateral hip. He reports that a year ago he had a hip replacement at this hospital. He reports that he is able to stand and even walk however feels like something is moving in his hip. He denies any weakness, numbness, tingling of the leg. He denies any pain in his back. Loss of consciousness: None Symptoms prior to fall: none Location of injury: head and other (Right hand and right hip) Severity scale (1-10): 6 Associated symptoms-after fall: Denies abdominal pain, chest pain, confusion, difficulty walking, headache(s), lightheadedness, neck pain, numbness, short of breath, vertigo or weakness Review of Systems General: Reports: 10 or more systems reviewed and unremarkable except in HPI and below Const: Denies: fever(s), chills, body aches or fatigue Eyes: Denies: change in vision or blurry vision Card: Denies: chest pain, palpitations, lightheadedness, syncope or pre- syncope Resp: Denies: dyspnea GI: Denies: abdominal pain : Denies: flank pain Musc: Reports: extremity pain (He reports strong discomfort right hip.), extremity swelling (Swelling and bruising to the right hand over the thumb) and joint stiffness; Denies: neck pain or back pain Neuro: Denies: headache(s), numbness in extremities, weakness in extremities, sensory changes, lack of coordination, difficulty walking, vertigo, confusion, behavioral changes, Slurred speech present or difficulty communicating thoughts PFSH ED PFSH: Medical History BPH (benign prostatic hyperplasia) Chronic kidney disease, stage 3a COVID-19 (~09/2020) COVID-19 vaccine administered Pfizer x2 doses Diabetes mellitus, type II Dizziness Fall Gait instability GERD (gastroesophageal reflux disease) Glaucoma Hyperlipidemia Hypertension 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 Hypothyroid Intertrochanteric fracture of right hip Kidney stones Overactive bladder Peripheral neuropathy Surgical History History of arthroplasty of left knee History of surgery on upper extremity Right upper extremity secondary to extensive fractures from fall, with subsequent revision History of total right knee replacement With subsequent revision due to fall with injury S/P ORIF (open reduction internal fixation) fracture S/p reverse total shoulder arthroplasty Family History Denies family history of CAD (coronary artery disease) Chronic kidney disease (CKD) Anesthesia complication Bleeding disorder Stroke Social History Smoking and tobacco status: former smoker Alcohol intake: current Alcohol intake frequency: few times a month Additional social history: Quit smoking more than 60 years ago Physical Exam Narrative: EXAM NARRATIVE: Patient is pleasant and cooperative sitting up in a chair Const: COMMON NORMALS: patient oriented x3 GENERAL APPEARANCE: cooperative, comfortable and well developed Eye: COMMON NORMALS: Equal, round and reactive pupils present PUPIL: Yes Equal, round and reactive pupils present Neck/C-Spine: GENERAL: Yes normal visual inspection, Yes trachea midline, No anterior neck swelling and No tender Chest: CHEST: Yes Symmetrical chest wall rise Resp: EFFORT & INSPECTION: Yes able to speak in complete sentences, Yes symmetric chest movement, No tachypneic, No respiratory distress and No uses accessory muscles Cardio: COMMON NORMALS: regular rate, regular rhythm, S1 normal heart sound present and S2 normal heart sound present RATE: regular rate RHYTHM: regular rhythm HEART SOUNDS: S1 normal heart sound present and S2 normal heart sound present GI: COMMON NORMALS: Soft to palpation INSPECTION: Yes normal to inspection AUSCULTATION: Yes normoactive bowel sounds PALPATION: Yes Soft to palpation and No Tenderness to palpation present (GI) : COMMON NORMALS: Yes no CVA tenderness BLADDER/KIDNEY EXAM: Yes no CVA tenderness Back/Pelvis: COMMON NORMALS: no CVA tenderness Extremity: RIGHT UPPER EXTREMITY: Yes hand & digits Right hand and digits: Yes inspection (Swelling, bruising to the right first metacarpal), Yes palpation (No obvious bony deformity palpated), Yes ROM exam (Normal) and Yes neurovascular exam (Color, sensation, movement within normal limits) RIGHT LOWER EXTREMITY: Yes upper leg Right upper leg: Yes inspection (Mild swelling noted to the right lateral thigh), Yes palpation (Tenderness to palpation right lateral thigh) and Yes other (Patient is able to bear weight on right leg) OTHER: The patient is able to ambulate and bear weight on the right leg. It is tender to palpation to the right lateral thigh without any bruising, erythema. No popping or clicking appreciated in the hip joint with range of motion. Neuro: COMMON NORMALS: patient oriented x3, CN's II-XII intact bilaterally, moves all extremities, no focal motor deficits, no sensory deficits noted and gait normal (Ambulates with walker. Chronic unsteady gait) Course Vital Signs: Vital signs: Vital Signs Temperature 97.9 F 02/09/22 11:51 Pulse Rate 81 02/09/22 11:51 Respiratory Rate 16 02/09/22 11:51 Blood Pressure 180/73 02/09/22 11:51 Pulse Oximetry 98 02/09/22 11:51 Oxygen Delivery Me thod 02/09/22 11:51 MDM - Fall Medical Decision Making Anselmo is an 86-year-old male that was in today after a fall in his hotel. The patient reports pain to his right thumb but does have free range of motion and equal gang supervisor strength right and left hand. No obvious bony deformity appreciated although there is some swelling and bruising over the first metacarpal on the right side. No snuffbox tenderness. The patient reports discomfort, not pain, to right lateral thigh. He reports that he is afraid because he has had a hip replacement on that side last year. He is able to ambulate with the aid of his walker. There is some tenderness and swelling to the right lateral thigh however there is no bruising or erythema noted. Patient also has superficial scabbed abrasions over his right eyebrow. He reports those are from the fall. He denies any loss of consciousness. Neuro exam with cranial nerves II through XII grossly intact. I had a discussion with the patient and his family member regarding a head CT scan. We discussed increased risk of bleed given patient's advanced age. they opted not to have this today. They report that patient has had a subdural hematoma in the past. They report they know what they are looking for. The family member and the patient both agree that the patient did not hit his head it was more that his glasses hit the floor and scraped his head. Patient denies any use of anticoagulant medication. Denies any head pain or headache. X-rays done of patient's right hand, right hip, femur right side. X-rays negative for any acute fractures or dislocations. Will advise patient of x-ray results. Discharge patient to home with family member. Advised him of conservative treatments at home, rest, ice. Follow-up with primary care provider as needed. Return to the ER for any new or worsening symptoms. Lab Data Radiology Impressions Femur X-Ray 02/09/22 12:27 IMPRESSION: 1. No acute femoral fracture or dislocation. Hand X-Ray 02/09/22 12:27 IMPRESSION: 1. No evidence of acute fracture or dislocation. Degenerative changes as above. Hip/Pelvis X-Ray 02/09/22 12:27 IMPRESSION: 1. No acute fracture or dislocation. Discharge Plan Discharge Patient Disposition: Home Clinical Impression: Fall, Contusion of hip and thigh, Contusion of hand including fingers, Abrasion head Condition: Stable Prescriptions: No Action latanoprost 0.005 % drops 1 drp ophthalmic (eye) DAILY metformin 850 mg tablet 850 mg PO DAILY omeprazole 40 mg capsule,delayed release(DR/EC) 40 mg PO DAILY Euthyrox 100 mcg tablet 100 mcg PO DAILY tamsulosin 0.4 mg capsule 0.4 mg PO DAILY meclizine 25 mg tablet 25 mg PO DAILY PRN (Reason: Dizziness) simvastatin 20 mg tablet 20 mg PO DAILY allopurinol 300 mg tablet 300 mg PO DAILY hydrochlorothiazide 25 mg tablet 25 mg PO DAILY gabapentin 100 mg capsule 200 mg PO BID lisinopril-hydrochlorothiazide 10-12.5 mg tablet 1 tab PO DAILY ketoconazole 2 % cream 1 applic TOPICAL DAILY oxybutynin chloride 5 mg tablet 5 mg PO DAILY finasteride 5 mg tablet 5 mg PO DAILY Discharge Orders: Discharge ED (Routine); Ordered 02/09/22 Ordered By: Emilia Rondon Discharge Diet: Usual diet Discharge Activity: Resume usual activity Patient Instructions: Hip Contusion (ED) Activity Restrictions/Additional Instructions: Your x-rays were negative for any acute fracture or dislocation today. Discharge to home with family. Be sure to rest, ice, elevate your hand and your leg. Use Tylenol as needed. Be sure to monitor closely for any neurologic changes including balance changes, confusion, weakness, headache, visual disturbance. Should you notice any new or worsening symptoms go immediately to the emergency department. Follow-up with your primary care provider as needed. Coding Level of Care Code ED Loading Dock Hand for Estela Mahan Exam Comprehensive
--- NOTE | 2022-02-09 12:27 | XR_ITS ---
WS: [id number] Exam: XR femur RT min 2V* [id number] Date/Time of Exam: 02/09/2022 12:37 PM Reason For Exam: right leg pain s/p fall No fracture or dislocation noted. Intramedullary salma and femoral neck screw noted in the femur. Total right knee replacement. Vascular calcifications in the adjacent soft tissues. XR/XR femur RT min 2V* [id number] IMPRESSION: 1. No acute femoral fracture or dislocation.
--- NOTE | 2022-02-09 12:27 | XR_ITS ---
WS: [id number] Exam: XR hand RT 2V [id number] Date/Time of Exam: 02/09/2022 12:37 PM Reason For Exam: hand pain, swelling, and bruising s/p fall No acute fracture or dislocation. No radiopaque soft tissue foreign bodies. Degenerative changes of t he IP joints and CMC joint of the thumb. Degenerative changes at the wrist and chondrocalcinosis. Old ulnar styloid fracture. XR/XR hand RT 2V [id number] IMPRESSION: 1. No evidence of acute fracture or dislocation. Degenerative changes as above.
--- NOTE | 2022-02-09 12:27 | XR_ITS ---
WS: [id number] Exam: XR hip RT 2-3V wo/w pel* [id number] Date/Time of Exam: 02/09/2022 12:37 PM Reason For Exam: hip pain after fall No acute hip fracture or dislocation. Healed intertrochanteric fracture stabilized with intramedullar y salma and femoral neck screw. Moderate degenerative change of the joint compartment. XR/XR hip RT 2-3V wo/w pel* [id number] IMPRESSION: 1. No acute fracture or dislocation.
[2022-02-09 14:16] VITALS: BP 172/82; PULSE 88; O2SAT 98
== END 2022-02-09 14:17 | disposition home or self-care (01) ==
PROVIDERS: Emergency Provider Nurse Practitioner Family
DX: S00.81XA Abrasion of other part of head, initial encounter (principal); S70.01XA Contusion of right hip, initial encounter; S70.11XA Contusion of right thigh, initial encounter; S60.221A Contusion of right hand, initial encounter; Z79.84 Long term (current) use of oral hypoglycemic drugs; E11.22 Type 2 diabetes mellitus with diabetic chronic kidney disease; I12.9 Hypertensive chronic kidney disease with stage 1 through stage 4 chronic kidney disease, or unspecified chronic kidney disease; N18.31 Chronic kidney disease, stage 3a; E78.5 Hyperlipidemia, unspecified; Z87.891 Personal history of nicotine dependence; W18.09XA Striking against other object with subsequent fall, initial encounter; Y92.59 Other trade areas as the place of occurrence of the external cause
CPT/HCPCS: 73120; 73502; 73552; 99283